=== PATIENT | male | born 1970 | race Caucasian/White ===

== ENCOUNTER 2020-03-03 15:02 | Outpatient (CLI) | payer OTHER, SELFPAY | END 2020-03-03 15:03 | disposition home or self-care (01) | LOC: RAD 03-04 09:57 | PROVIDERS: Visit Provider Emergency Medicine | DX: L97.519 Non-pressure chronic ulcer of other part of right foot with unspecified severity (principal); I10 Essential (primary) hypertension; I73.9 Peripheral vascular disease, unspecified; M86.8X7 Other osteomyelitis, ankle and foot | CPT/HCPCS: 73630; 80053; 80061; 83036; 84450; 85025; 87070 ==

== ENCOUNTER 2020-03-08 07:57 | Outpatient (RCR) | payer OTHER, SELFPAY | END 2020-03-10 23:59 | disposition home or self-care (01) | LOC: WOUND 07:57 | PROVIDERS: Visit Provider Thoracic Surgery (Cardiothoracic Vascular Surgery) | DX: E11.621 Type 2 diabetes mellitus with foot ulcer (principal); L97.512 Non-pressure chronic ulcer of other part of right foot with fat layer exposed | CPT/HCPCS: 87070; 87077; 87186; 99204; G0463 ==

== ENCOUNTER 2020-03-08 09:43 | Inpatient (IN) | payer OTHER, SELFPAY ==
[2020-03-08] VITALS (14 sets, daily range): BP systolic 97–154; BP diastolic 49–105; PULSE 87–106; RESP 16–21; TEMP 36.6–37.1; O2SAT 96–100; BMI 25.2
--- NOTE | 2020-03-08 09:57 | XR_ITS ---
WS: [id number] PORTABLE CHEST HISTORY: pre op COMPARISON: None available. Lungs are clear and well expanded. No pleural effusion or pneumothorax. Cardiac size: Normal. Mediastinum/Aorta: Normal mediastinum. No osseous abnormality seen. XR/XR chest 1V portable [id number] IMPRESSION: Unremarkable portable chest.
--- NOTE | 2020-03-08 10:37 | W.ED.EXTPRO ---
HPI - Extremity Problem General: Chief complaint: Extremity Problem,Nontraumatic Stated complaint: INFECTION RIGHT FOOT Time Seen by Provider: 03/08/20 09:50 Review of Systems General: Reports: 10 or more systems reviewed and unremarkable except in HPI and below PFSH ED PFSH: Medical History Foot ulcer, right HTN (hypertension) Osteomyelitis of ankle or foot, acute PVD (peripheral vascular disease) Social History Smoking and tobacco status: never smoked Alcohol intake: never Physical Exam Narrative: EXAM NARRATIVE: Patient has a wound to the dorsal aspect of his right foot. He has been seen by cardiovascular surgery and it is determined that he has osteomyelitis. Patient was sent to the emergency room to be admitted for definitive treatment. Skin: WOUNDS: Yes wounds noted drainage, malodorous and open Course Vital Signs: Vital signs: Vital Signs Temperature 98.5 F 03/08/20 10:17 Pulse Rate 106 H 03/08/20 10:35 Respiratory Rate 17 03/08/20 10:35 Blood Pressure 154/105 03/08/20 10:17 Pulse Oximetry 98 03/08/20 10:35 Discharge Plan Discharge Patient Disposition: Admitted As Inpatient Clinical Impression: PVD (peripheral vascular disease) Osteomyelitis of ankle or foot, acute Qualifiers: Laterality: right Qualified Code(s): M86.171 - Other acute osteomyelitis, right ankle and foot Foot ulcer, right Qualifiers: Non-pressure ulcer stage: unspecified non-pressure ulcer stage Qualified Code(s): L97.519 - Non-pressure chronic ulcer of other part of right foot with unspecified severity Condition: Fair Coding Level of Care Code 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
[2020-03-08 11:02] LABS: Basophils # 0.1 10^3/uL (0.0-0.1); Basophils % 0.3 %; Eosinophils # 0.1 10^3/uL (0.0-0.8); Eosinophils % 0.3 %; Hematocrit 40.5 % (42.0-52.0); Hemoglobin 13.2 g/dL (11.7-16.6); Lymphocytes # 0.9 10^3/uL (0.8-4.8); Lymphocytes % 4.4 %; Mean Corpuscular HGB Conc 32.6 g/dL (30.0-36.0); Mean Corpuscular Volume 85.8 fL (80-94); Mean Platelet Volume 10.1 fL (7.4-10.4); Monocytes # 0.9 10^3/uL (0.2-0.9); Monocytes % 4.7 %; Neutrophils # 16.5 10^3/uL (1.8-7.7); Neutrophils % 84.8 %; Nucleated Red Blood Cells % 0 %; Platelet Count 326 10^3/cmm (130-400); Red Blood Count 4.72 10^6/uL (4.1-5.3); Red Cell Distribution Width 12.3 % (12.1-15.1); White Blood Count 19.4 10^3/uL (4.0-10.0)
--- NOTE | 2020-03-08 11:14 | ANES.PREANE2 ---
Pre-Anesthetic Assessment Pre-Anesthetic Assessment: Height/Weight: Height 1.93 m Weight 93.894 kg Temp Pulse Resp BP Pulse Ox 98.5 F 106 H 17 154/105 98 03/08/20 10:17 03/08/20 10:35 03/08/20 10:35 03/08/20 10:17 03/08/20 10:35 Preop Diagnosis: Ulcer (Rfoot) Familial anesthetic complications: None Social: Social History: No alcohol and No tobacco Exam: Pre-Anes Outpt Exam: alert, oriented x 3, clear to auscultation bilaterally and regular rate & rhythm Airway: Cervical ROM: WNL MP: 4 Dentition: Chipped Additional comments: missing Pulmonary: Pulmonary: None reported CV/HEM: CV/HEM: HTN : : None reported Hepatic: Hepatic: None reported GI: GI: None reported Metabolic: Metabolic: DM and Hyperlipidemia Musc/skel: Musc/skel: None reported Neuropsych: Neuropsych: None reported Anesthetic Plan: ASA status: 2 Anesthesia: General Risk of > 500 ml blood loss (7ml/kg in children): No PFSH Anesthesia PFSH: Medical History Foot ulcer, right HTN (hypertension) Osteomyelitis of ankle or foot, acute PVD (peripheral vascular disease) Social History Smoking and tobacco status: never smoked Alcohol intake: never Data Anesthesia Micro: Microbiology 03/08/20 10:55 Blood Culture - Preliminary Blood SPECIMEN COLLECTED 03/08/20 10:50 Blood Culture - Preliminary Blood SPECIMEN COLLECTED Cardiac Studies: No Data to Display
[2020-03-08] MEDS: sodium chloride 0.9% 500 ML IV (11:15)
[2020-03-08 11:19] LABS: Lactate (Lactic Acid level) 1.7 mmol/L (0.5-2.2)
[2020-03-08 11:20] LABS: Alanine Aminotransferase 22 U/L (0-41); Albumin Level 2.7 g/dL (3.5-5.2); Alkaline Phosphatase 65 IU/L (40-130); Anion Gap 22.9 (5-19); Aspartate Amino Transferase 29 U/L (0-40); Blood Urea Nitrogen 14 mg/dL (6-20); Calcium 9.8 mg/dL (8.5-10.5); Carbon Dioxide 24 mmol/L (22-29); Chloride 86 mmol/L (98-107); Globulin 5.3 g/dL (1.3-4.6); Glomerular Filtration Rate 142.6 mL/min (90-130); Glucose 340 mg/dL (65-115); Osmolality Calculated 278 mOsm/kg (285-295); Potassium 3.9 mmol/L (3.5-5.1); Sodium 129 mmol/L (136-145); Total Bilirubin 0.7 mg/dL (0.15-1.2)
--- NOTE | 2020-03-08 11:33 | PM.HP ---
Providers/Chief Complaint Admitting Physician: Maura Hsieh DO Chief Complaint: DM FOOT ULCER History of Present Illness Benito Ibanez is a 49 year old male with a past medical history of hypertension and diabetes that presented to wound care today due to right lower extremity ulcer. He reported that he has been having issues with the right lower extremity for the past 1-2 months. He stated that initially it started with a small ulcer on the fifth digit of his right foot, he stated that this seemed to get better so he did not seek any further medical care. Patient reported that then he developed a blister over the top of his right foot and increasing redness. He reported that he went to urgent care and received antibiotics. He was sent to wound care and had appointment today. He reported that he was recently started on medications for high blood pressure and diabetes. Patient denies any fevers or chills, no sick contacts. He reports that he has had increased thirst and increased frequency of urination, no dysuria. He does report worsening redness over the right foot as well as increased drainage. Patient was seen and evaluated in the emergency department after sent from wound care noted to have concern for osteomyelitis. Review of Systems Const: Denies: fever or chills Eyes: Denies: change in vision ENMT: Denies: nasal congestion Card: Denies: chest pain, palpitations or edema Resp: Denies: shortness of breath, productive cough or coughing up blood GI: Denies: abdominal pain, nausea, vomiting, diarrhea, constipation, blood in stool or black tarry stool : Denies: painful urination or blood in urine Musc: Denies: extremity pain or muscle cramps Skin/Breast: Reports: other (Worsening erythema in the right foot as well as blister and nonhealing ulcers in the right foot); Denies: rash Neuro: Denies: headache or dizziness Psych: Denies: anxiety or depression Endo: Reports: excessive urination; Denies: hot flashes Tripp/Lymph: Denies: easy bruising or easy bleeding Medications/Allergies Home Medications Medication Instructions Recorded Confirmed Last Taken Type mupirocin 2 % topical ointment 1 applic TOPICAL BID #15 gm 03/03/20 03/08/20 03/08/20 Rx nystatin 100,000 unit/gram topical 1 applic TOPICAL BID #15 gm 03/03/20 03/08/20 03/08/20 Rx cream atorvastatin 20 mg tablet 20 mg PO DAILY #30 tab 03/05/20 03/08/20 Unknown Rx doxycycline hyclate 100 mg tablet 100 mg PO BID 10 Days #20 tab 03/05/20 03/08/20 03/08/20 Rx lisinopril 5 mg tablet 5 mg PO DAILY #30 tab 03/05/20 03/08/20 Unknown Rx metformin 500 mg tablet 500 mg PO BID 30 Days #60 tab 03/05/20 03/08/20 Unknown Rx Allergies Allergy/AdvReac Type Severity Reaction Status Date / Time No Known Allergies Allergy Verified 03/08/20 10:19 PFSH Acute PFSH: Medical History (Updated 03/08/20 @ 11:38 by Maura Hsieh DO) Diabetes mellitus Foot ulcer, right HTN (hypertension) Osteomyelitis of ankle or foot, acute PVD (peripheral vascular disease) Social History Smoking and tobacco status: never smoked Alcohol intake: never Supplemental PFSH Information: Patient denies any family history of heart disease, diabetes or stroke Denies any prior surgeries Vitals/I&O/Wt Last Vital Signs Temp 98.5 F 03/08/20 10:17 Pulse 106 H 03/08/20 10:35 Resp 17 03/08/20 10:35 BP 154/105 03/08/20 10:17 Pulse Ox 98 03/08/20 10:35 Weight last 48 hrs Weight 93.894 kg Physical Exam Const: COMMON NORMALS: oriented x3 and alert GENERAL APPEARANCE: cooperative ORIENTATION/CONSCIOUSNESS: Yes awake, Yes oriented to person, Yes oriented to place and Yes oriented to time HENMT: COMMON NORMALS: normocephalic and head/scalp atraumatic HEAD & SCALP: normocephalic and atraumatic Eye: COMMON NORMALS: PERRL PUPIL: Yes PERRL Neck/C-Spine: COMMON NORMALS: supple GENERAL: Yes normal visual inspection Resp: COMMON NORMALS: normal respiratory effort and clear to auscultation bilaterally EFFORT & INSPECTION: Yes able to speak in complete sentences AUSCULTATION: clear to auscultation bilaterally, no rhonchi and no wheezes Cardio: COMMON NORMALS: regular rhythm and no murmurs RATE: tachycardic RHYTHM: regular rhythm GI: COMMON NORMALS: soft to palpation and non-tender INSPECTION: No abdominal distension AUSCULTATION: Yes normoactive bowel sounds PALPATION: Yes soft : COMMON NORMALS: Yes no CVA tenderness BLADDER/KIDNEY EXAM: Yes no CVA tenderness Back/Pelvis: COMMON NORMALS: no CVA tenderness Extremity: NARRATIVE EXTREMITY EXAM: Edema and erythema to the right foot with blister over the ventral portion of the foot with hematoma and lateral ulcerations over the fifth digit with drainage of purulent material Neuro: COMMON NORMALS: oriented x3, CN's II-XII intact bilaterally, moves all extremities and no focal motor deficits SENSORIUM/ORIENTATION: Yes alert, Yes oriented to person, Yes oriented to place and Yes oriented to time SPEECH: speech normal Psych: COMMON NORMALS: mental status grossly normal and cooperative Data : 03/08/20 10:50 03/08/20 10:50 Micro: Microbiology 03/08/20 10:55 Blood Culture - Preliminary Blood SPECIMEN COLLECTED 03/08/20 10:50 Blood Culture - Preliminary Blood SPECIMEN COLLECTED A&P Assessment and plan (1) Osteomyelitis of ankle or foot, acute: X-ray from 03/03/2020 reviewed showing soft tissue ulceration with osteomyelitis involving the fifth metatarsal and metatarsal head Patient was seen in wound care today and admitted for further evaluation and treatment Case was discussed with Dr. Mcduffie, general surgeon. Patient to go to the OR today We will continue patient on broad-spectrum antibiotics with vancomycin and Zosyn Status: Acute Qualifiers: Laterality: right Qualified Code(s): M86.171 - Other acute osteomyelitis, right ankle and foot (2) Diabetes mellitus: Hemoglobin A1c last week of 10.1 Placed on sliding scale insulin May require long-acting insulin Status: Acute (3) HTN (hypertension): On lisinopril 5 mg daily, recently started. Will restart and monitor blood pressure closely. PRN hydralazine as needed for elevated blood pressure Status: Acute Additional A&P Information Sepsis secondary to osteomyelitis: tachycardia, leukocytosis. IV antibiotics and IVF ordered. Blood culture ordered and pending Pseudohyponatremia due to hyperglycemia DVT prophylaxis: SCD to the left lower extremity, no pharmacologic prophylaxis due to anticipated surgery today Diet: N.p.o. 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
[2020-03-08 11:40] LABS: Slide Review Slide Review Perform
[2020-03-08] MEDS: lisinopril 5 mg Tablet PO (12:44)
[2020-03-08] MEDS: sodium chloride 0.9% 1,000 ML 75 ML IV ×2 (12:45→23:54)
[2020-03-08 13:31] LABS: Glucose Point of Care 312 mg/dL (70-110)
--- NOTE | 2020-03-08 13:42 | PM.CONSULT ---
Providers/Reason For Consult Consulting Physican/Specialty*: Dr. Klein Reason for Consult*: Cellulitis right foot Attending Physician: Maura Hsieh DO History of Present Illness History of Present Illness Benito Ibanez is a 49 year old male who has since healed. He states that he developed a new ulcer right foot 2 weeks ago and which over the course of the week started pain redness and swelling. He was seen at urgent care clinic last week with x-ray showing osteomyelitis of right fifth metatarsal head. Patient is seen in wound care today admitted to the hospital for IV antibiotics. No prior surgical debridements. Patient is not a smoker and has not had any history of peripheral vascular disease. He is a diabetic Review of Systems General: Reports: 10 or more systems reviewed and unremarkable except in HPI and below Meds/Allergies Home Medications and Allergies Home Medications Medication Instructions Recorded Confirmed Last Taken Type mupirocin 2 % topical ointment 1 applic TOPICAL BID #15 gm 03/03/20 03/08/20 03/08/20 Rx nystatin 100,000 unit/gram topical 1 applic TOPICAL BID #15 gm 03/03/20 03/08/20 03/08/20 Rx cream atorvastatin 20 mg tablet 20 mg PO DAILY #30 tab 03/05/20 03/08/20 Unknown Rx doxycycline hyclate 100 mg tablet 100 mg PO BID 10 Days #20 tab 03/05/20 03/08/20 03/08/20 Rx lisinopril 5 mg tablet 5 mg PO DAILY #30 tab 03/05/20 03/08/20 Unknown Rx metformin 500 mg tablet 500 mg PO BID 30 Days #60 tab 03/05/20 03/08/20 Unknown Rx Allergies Allergy/AdvReac Type Severity Reaction Status Date / Time No Known Allergies Allergy Verified 03/08/20 10:19 Current Medications Current Medications Generic Name Dose Route Start Last Admin Trade Name Freq PRN Reason Stop Dose Admin Sodium Chloride 1,000 mls @ 75 mls/hr 03/08/20 12:14 03/08/20 12:45 Sodium Chloride 0.9% IV 75 mls/hr .[id number] MALKA Administration Lisinopril 5 mg 03/08/20 12:14 03/08/20 12:44 Prinivil PO 5 mg DAILY MALKA Administration PFSH Acute PFSH: Medical History Diabetes mellitus Foot ulcer, right HTN (hypertension) Osteomyelitis of ankle or foot, acute PVD (peripheral vascular disease) Surgical History No pertinent past surgical history Social History Smoking and tobacco status: never smoked Alcohol intake: never Vitals/I&O/Wt Last Vital Signs Temp 978 F H 03/08/20 12:14 Pulse 105 H 03/08/20 13:07 Resp 21 H 03/08/20 12:14 BP 144/84 03/08/20 12:14 Pulse Ox 97 03/08/20 13:07 Weight last 48 hrs Weight 207 lb Physical Exam Narrative: EXAM NARRATIVE: HEENT: Normocephalic Eye: Sclera /conjunctiva normal Respiratory and chest: Bilateral clear breath sounds on auscultation Cardiovascular: Normal S1 and S2 heart sounds Abdomen: Soft to palpation Neurological: Oriented to place person and time Skin: Intact, cellulitis extending to mid leg, edematous with 2 ulcers on the lateral aspect of the right foot Data Micro: Micro: Microbiology 03/08/20 10:55 Blood Culture - Pr eliminary Blood SPECIMEN [facility] 03/08/20 10:50 Blood Culture - Pr eliminary Blood SPECIMEN [facility] Imaging^: Other Xray: Radiologist's impression: X-ray foot showed osteomyelitis of the fifth metatarsal head A&P Assessment and plan (1) Osteomyelitis of ankle or foot, acute: 49-year-old gentleman who is a diabetic who has developed necrotic ulcer x2 on the right foot with associated cellulitis and osteomyelitis of the fifth metatarsal head. Patient is admitted to the hospital for IV antibiotics from wound care clinic. We will plan for debridement of the wound on right foot, discussed with the patient that if he does not have any significant soft tissue coverage over the phalanx of the metatarsal head after debridement then the best course of action would be to perform a metatarsal amputation. Procedure, risks, benefits and alternatives have been discussed with the patient who wishes to proceed with surgery. 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
[2020-03-08 17:51] LABS: Glucose Point of Care 244 mg/dL (70-110)
[2020-03-08] MEDS: insulin regular-human 100 units/1 mL 5 UNIT IVP (18:06)
--- NOTE | 2020-03-08 19:17 | PM.OP ---
Operative Report Date of procedure: March 08, 2020 Pre-op Diagnosis: Osteomyelitis right fifth metatarsal Pre-op Diagnosis: Cellulitis right foot Necrotic wound right foot x3 Post-op Diagnosis: Necrotizing cellulitis right foot Osteomyelitis right fifth metatarsal Procedure Done: Wound #1: Excisional debridement of necrotic skin, subcutaneous tissue, tendon, muscle on dorsal aspect of right foot using 10 blade Wound #2: Excisional debridement of necrotic skin, subcutaneous tissue using 15 blade on lateral aspect of right foot Right fifth metatarsal bone biopsy using a rongeur Specimens removed/disposition: Wound culture, bone cultures and pathology Surgeon: Dario Mcduffie Anesthesia: General Estimated blood loss (mL): 20 Condition: stable Disposition: PACU Procedure: The patient was taken to the operating room and intubated under general anesthesia after IV antibiotic had been administered. The right foot was prepped and draped in a sterile manner. Using a 15 blade excisional debridement of necrotic skin, subcutaneous tissue, muscle and tendons were performed on the dorsal aspect of the right foot resulting in a wound measuring 15 x 11 x 2 cm deep. There are 2 wounds on the lateral aspect of the right foot was debrided using 15 blade. The metatarsal head could be palpated to the more distal wound which measured 2 x 2 cm. The more proximal lateral wound was incorporated into the larger wound after the skin and subcutaneous tissue was excised. Wound cultures were sent and soft tissue sent to pathology. Using rondure bone biopsies were obtained from the metatarsal head. There was no significant bleeding noted, the wound irrigated with saline, packed with Kerlix gauze covered with ABD, Kerlix and Ernesto wrap. The patient was transferred to recovery room in stable condition.
--- NOTE | 2020-03-08 19:28 | SUR.PHASEI ---
PT DOES NOT AWAKE TO TOUCH OR VOICE, GOOD RESP NOTED FEET UP PER BED DRESSING D.I TO RT FOOT DISTAL TOES PINK WITH CAP REFILL LESS THAN 3 SECONDS.
[2020-03-08 19:34] LABS: Glucose Point of Care 171 mg/dL (70-110)
--- NOTE | 2020-03-08 19:34 | SUR.PHASEI ---
PT NOW AWAKE ALERT ON RA TAKING ICE CHIPS PT DENIE PAIN VSS.
--- NOTE | 2020-03-08 19:35 | SUR.PHASEI ---
DR ROMAN AT BEDSIDE, TALKING TO PT ABOUT SURGERY, AND CALLED PT EARLIER AND UP DATED HER.
--- NOTE | 2020-03-08 20:10 | SUR.PHASEI ---
1950 PT TO FLOOR ALERT MOVES SELF TO BED TALKATIVE WITH STAFF.
[2020-03-08 21:09] LABS: Glucose Point of Care 183 mg/dL (70-110)
[2020-03-08] MEDS: piperacillin-tazobactam 3.375 GM in sodium chloride 0.9% (plus) 50 ML IV (23:59)
[2020-03-09] VITALS (7 sets, daily range): BP systolic 110–133; BP diastolic 70–82; PULSE 97–100; RESP 18; TEMP 36.7–37.5; O2SAT 95–98
[2020-03-09 01:59] LABS: Basophils % 0.2 %; Eosinophils # 0.1 10^3/uL (0.0-0.8); Hematocrit 31.9 % (42.0-52.0); Hemoglobin 10.5 g/dL (11.7-16.6); Lymphocytes # 1.2 10^3/uL (0.8-4.8); Mean Corpuscular HGB Conc 32.9 g/dL (30.0-36.0); Mean Corpuscular Hemoglobin 28.3 pg (28.0-34.0); Mean Platelet Volume 9.9 fL (7.4-10.4); Monocytes # 0.8 10^3/uL (0.2-0.9); Monocytes % 5.9 %; Neutrophils # 11.2 10^3/uL (1.8-7.7); Neutrophils % 81.3 %; Nucleated Red Blood Cells % 0 %; Platelet Count 300 10^3/cmm (130-400); Red Blood Count 3.71 10^6/uL (4.1-5.3); Red Cell Distribution Width 12.6 % (12.1-15.1); White Blood Count 13.7 10^3/uL (4.0-10.0)
[2020-03-09 02:06] LABS: Anion Gap 16.6 (5-19); Blood Urea Nitrogen 14 mg/dL (6-20); Calcium 8.5 mg/dL (8.5-10.5); Carbon Dioxide 25 mmol/L (22-29); Chloride 93 mmol/L (98-107); Glucose 191 mg/dL (65-115); Osmolality Calculated 273 mOsm/kg (285-295); Potassium 3.6 mmol/L (3.5-5.1); Sodium 131 mmol/L (136-145)
--- NOTE | 2020-03-09 06:23 | P.PN_ITS ---
Vitals/I&O/Wt Last Vital Signs Temp 98.6 F 03/09/20 02:50 Pulse 97 03/09/20 02:50 Resp 18 03/09/20 02:50 BP 110/70 03/09/20 02:50 Pulse Ox 96 03/09/20 02:50 03/08/20 03/08/20 03/09/20 14:59 22:59 06:59 Intake Total 250 / 1626.25 1376.25 / 1626.25 Output Total 50 / 965 915 / 965 Balance 200 / 661.25 461.25 / 661.25 Weight last 48 hrs Weight 209 lb 8 oz Weight 207 lb Data : 03/09/20 01:46 03/09/20 01:46 Micro: Microbiology 03/08/20 18:43 Gram Stain - Final Other Source 03/08/20 18:43 Gram Stain - Final Bone 03/08/20 10:55 Blood Culture - Preliminary Blood SPECIMEN COLLECTED 03/08/20 10:50 Blood Culture - Preliminary Blood SPECIMEN COLLECTED 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
--- NOTE | 2020-03-09 06:27 | P.DS_ITS ---
Discharge Providers Date of Admission: 03/08/20 11:33 Date of Discharge: March 09, 2020 Attending Provider at Admission: Maura Hsieh DO Attending Provider at Discharge: Maura Hsieh DO Diagnoses at Discharge Discharge Diagnosis (1) Osteomyelitis of ankle or foot, acute: Status: Acute Qualifiers: Laterality: right Qualified Code(s): M86.171 - Other acute osteomyelitis, right ankle and foot Reason for Visit Reason for Visit: Reason For Visit: DM FOOT ULCER Discharge Data Data Completed and Pending: Completed Studies During Hospitalization Category Date Time Status XR chest 1V mike ble [id number] Urgent Exams 03/08/20 09:57 Completed Pending at discharge Category Date Time Status Anaerobic Culture Routine Lab 03/08/20 18:43 Received Basic Metabolic P noah AM LABS Lab 03/10/20 04:00 Ordered Basic Metabolic P noah AM LABS Lab 03/11/20 04:00 Ordered Blood Culture Sta t Lab 03/08/20 10:50 Results Blood Culture Sta t Lab 03/08/20 10:55 Results Complete Blood Co unt w/Auto AM LABS Lab 03/10/20 04:00 Ordered Complete Blood Co unt w/Auto AM LABS Lab 03/11/20 04:00 Ordered Tissue Culture an d Gram Stain Routi ne Lab 03/08/20 18:43 Results Vancomycin Trough Timed Lab 03/09/20 13:00 Ordered Wound Culture and Gram Stain Routin e Lab 03/08/20 18:43 Results Pathology: Surgic al [PTH] Routine Pth 03/08/20 19:26 [place] [id number] Rout ine Ultrasound 03/09/20 07:00 Ordered Labs from last 24 hours 03/09/20 03/09/20 03/08/20 01:46 01:46 20:57 WBC 13.7 H RBC 3.71 L Hgb 10.5 L Hct 31.9 L MCV 86.0 MCH 28.3 MCHC 32.9 RDW 12.6 Plt Count 300 MPV 9.9 Neut % (Auto) 81.3 Lymph % (Auto) 9.0 Miner % (Auto) 5.9 Eos % (Auto) 1.0 Baso % (Auto) 0.2 Neut # (Auto) 11.2 H Lymph # (Auto) 1.2 Miner # (Auto) 0.8 Eos # (Auto) 0.1 Baso # (Auto) 0.0 Nucleated RBC % (a uto) 0 Nucleated RBCs # 0.0 Sodium 131 L Potassium 3.6 Chloride 93 L Carbon Dioxide 25 Anion Gap 16.6 BUN 14 Creatinine 0.5 L GFR Calculation 176.0 H Glucose 191 H POC Glucose 183 Calculated Osmolal ity 273 L Lactate Calcium 8.5 Total Bilirubin AST ALT Alkaline Phosphata se Total Protein Albumin Globulin 03/08/20 03/08/20 03/08/20 19:21 17:47 13:27 WBC RBC Hgb Hct MCV MCH MCHC RDW Plt Count MPV Neut % (Auto) Lymph % (Auto) Miner % (Auto) Eos % (Auto) Baso % (Auto) Neut # (Auto) Lymph # (Auto) Miner # (Auto) Eos # (Auto) Baso # (Auto) Nucleated RBC % (a uto) Nucleated RBCs # Sodium Potassium Chloride Carbon Dioxide Anion Gap BUN Creatinine GFR Calculation Glucose POC Glucose 171 244 312 Calculated Osmolal ity Lactate Calcium Total Bilirubin AST ALT Alkaline Phosphata se Total Protein Albumin Globulin 03/08/20 03/08/20 03/08/20 10:50 10:50 10:50 WBC 19.4 H RBC 4.72 Hgb 13.2 Hct 40.5 L MCV 85.8 MCH 28.0 MCHC 32.6 RDW 12.3 Plt Count 326 MPV 10.1 Neut % (Auto) 84.8 Lymph % (Auto) 4.4 Miner % (Auto) 4.7 Eos % (Auto) 0.3 Baso % (Auto) 0.3 Neut # (Auto) 16.5 H Lymph # (Auto) 0.9 Miner # (Auto) 0.9 Eos # (Auto) 0.1 Baso # (Auto) 0.1 Nucleated RBC % (a uto) 0 Nucleated RBCs # 0.0 Sodium 129 L Potassium 3.9 Chloride 86 L Carbon Dioxide 24 Anion Gap 22.9 H BUN 14 Creatinine 0.6 L GFR Calculation 142.6 H Glucose 340 H POC Glucose Calculated Osmolal ity 278 L Lactate 1.7 Calcium 9.8 Total Bilirubin 0.7 AST 29 ALT 22 Alkaline Phosphata se 65 Total Protein 8.0 Albumin 2.7 L Globulin 5.3 H Vitals: Last Vital Signs Temp 98.6 F 03/09/20 02:50 Pulse 97 03/09/20 02:50 Resp 18 03/09/20 02:50 BP 110/70 03/09/20 02:50 Pulse Ox 96 03/09/20 02:50 Discharge Plan Discharge Patient Disposition: Home, Self-Care Condition: Fair Prescriptions: No Action nystatin 100,000 unit/gram cream 1 applic TOPICAL BID Qty: 15 RF: 1 mupirocin 2 % ointment 1 applic TOPICAL BID Qty: 15 RF: 1 doxycycline hyclate 100 mg tablet 100 mg PO BID 10 Days Qty: 20 RF: 0 metformin 500 mg tablet 500 mg PO BID 30 Days Qty: 60 RF: 0 lisinopril 5 mg tablet 5 mg PO DAILY Qty: 30 RF: 0 atorvastatin [Lipitor] 20 mg tablet 20 mg PO DAILY Qty: 30 RF: 0 Referrals: Tamara Dior MD [Physician] - 4-7 days (Appointment scheduled 03/16/2020 time 10:30am to officially establish care at clinic. 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
[2020-03-09 06:56] LABS: Glucose Point of Care 180 mg/dL (70-110)
--- NOTE | 2020-03-09 07:00 | USCV_ITS ---
Benito Ibanez Age: 49 Gender: M : 1970 Exam Date: 03/09/2020 10:37 Ordering Phys: Dario Mcduffie MD Technologist: Maliha Griffiths Exam Location: [facility] [place] Indication: FOOT ULCER Risk Factors: Previous Vascular Surgery: RIGHT LEFT BP: 130.0 / 75.00 BP: 140.0/ 84.00 0 0 Waveform Velocity (cm/s) Velocity (cm/s) Waveform Triphasic 89.7 Iliac Prox Triphasic 81.6 Iliac Mid Triphasic 70.7 Iliac Distal Triphasic FUNERAL ATTENDANT 60.9 Biphasic 65.5 SFA Prox Biphasic 80.1 SFA Mid Biphasic 113.4 SFA Dist Biphasic 65.5 POP Monophasic 121.7 CLINICAL SERVICES CONSULTANT Monophasic 39.6 DPA 0.7 ROJELIO FINDINGS RT CLINICAL SERVICES CONSULTANT = 85, RT DPA = 95 Diminished resting ROJELIO 0.7 on the right side CONCLUSIONS Moderate peripheral arterial disease on the right side. Dr Mary Cha MD FACC (Electronically Signed) Final Date: 09 March 2020 17:16 S
--- NOTE | 2020-03-09 08:15 | P.PN_ITS ---
Subjective Subjective: Interval history: Patient awake in bed upon entering the room. He reported that he slept well overnight. No chest pain or shortness of breath. Discussion with patient about severity of infection in the right lower extremity, discussed with him tendon excision from the right lower extremity due to infection and the need for continued IV antibiotics at this time due to c ellulitis and osteomyelitis. Patient verbalized understanding. Discussed with patient about the options for care including IV therapy and wound care, if not septic appearing, with trying to salvage the limb if possible. Also discussed with patient option including right below the knee amputation due to severity of his osteomyelitis and lower extremity cellulitis. Patient is uncertain of which route he would like to proceed with at this time. He reported that he will think about it and discuss further with surgeon this afternoon. Vitals/I&O/Wt Last Vital Signs Temp 98.8 F 03/09/20 07:39 Pulse 99 03/09/20 07:39 Resp 18 03/09/20 07:39 BP 124/72 03/09/20 07:39 Pulse Ox 95 03/09/20 07:39 03/08/20 03/09/20 03/09/20 22:59 06:59 14:59 Intake Total 250 / 250 1376.25 / 1626.25 Output Total 50 / 50 915 / 965 Balance 200 / 200 461.25 / 661.25 Weight last 48 hrs Weight 95.028 kg Weight 93.894 kg Physical Exam Const: COMMON NORMALS: oriented x3 and alert GENERAL APPEARANCE: cooperat marino ORIENTATION/CONSCIOUSNESS: Yes awake, Yes oriented to person, Yes oriented to place and Yes oriented to time HENMT: COMMON NORMALS: normocephalic and head/scalp atraumatic HEAD & SCALP: normocephalic and atraumatic Eye: COMMON NORMALS: PERRL PUPIL: Yes PERRL Neck/C-Spine: COMMON NORMALS: supple GENERAL: Yes normal visual inspection Resp: COMMON NORMALS: normal respiratory effort and clear to auscultation bilaterally EFFORT & INSPECTION: Yes able to speak in complete sentences AUSCULTATION: clear to auscultation bilaterally, no rhonchi and no wheezes Cardio: COMMON NORMALS: regular rhythm and no murmurs RATE: tachycardic RHYTHM: regular rhythm GI: COMMON NORMALS: soft to palpation and non-tender INSPECTION: No abdominal distension AUSCULTATION: Yes normoactive bowel sounds PALPATION: Yes soft : COMMON NORMALS: Yes no CVA tenderness BLADDER/KIDNEY EXAM: Yes no CVA tenderness Back/Pelvis: COMMON NORMALS: no CVA tenderness Extremity: NARRATIVE EXTREMITY EXAM: Postoperative dressing in place over the right lower extremity, erythema at the region of skin marking Neuro: COMMON NORMALS: oriented x3, CN's II-XII intact bilaterally, moves all extremities and no focal motor deficits SENSORIUM/ORIENTATION: Yes alert, Yes oriented to person, Yes oriented to place and Yes oriented to time SPEECH: speech normal Psych: COMMON NORMALS: mental status grossly normal and cooperative Data : 03/09/20 01:46 03/09/20 01:46 Micro: Microbiology 03/08/20 18:43 Gram Stain - Final Other Source 03/08/20 18:43 Gram Stain - Final Bone 03/08/20 10:55 Blood Culture - Preliminary Blood SPECIMEN COLLECTED 03/08/20 10:50 Blood Culture - Preliminary Blood SPECIMEN COLLECTED A&P Assessment and plan (1) Osteomyelitis of ankle or foot, acute: Osteomyelitis of the right fifth metatarsal with cellulitis to the right foot Status post excisional debridement of necrotic skin, subcutaneous tissue, tendon, muscle on the dorsal aspect of the right foot performed on 03/08/2020 Continue with IV antibiotics, broad-spectrum at this time with vancomycin and Zosyn Discussed with the patient today plans for continued treatment, discussed options of treatment including right below the knee amputation or PICC line placement with long-term IV antibiotics and wound care. Patient to discuss further and think about this further, will discuss further with surgeon today ROJELIO ordered and pending Status: Acute Qualifiers: Laterality: right Qualified Code(s): M86.171 - Other acute osteomyeli tis, right ankle and foot (2) Diabetes mellitus: Recently diagnosed, hemoglobin A1c of 10.1 last week Started on Lantus 10 units daily, continue on sliding scale insulin as needed Status: Acute (3) HTN (hypertension): Continue on lisinopril 5 mg daily Status: Acute Additional A&P Information Sepsis secondary to osteomyelitis: Improved, continue antibiotics Pseudohyponatremia due to hyperglycemia DVT prophylaxis: Lovenox Diet: Carbohydrate consistent diet Attestations Medical Necessity Statement*: Patient requires further hospitalization due to right lower extremity osteomyelitis and right foot cellulitis Coding Level of Care Code Acute Pediatrician Managing Partner for [facility] Diagnoses Osteomyelitis of ankle or foot, acute M86.171 Laterality: right Diabetes mellitus E11.9 HTN (hypertension) I10
[2020-03-09] MEDS: piperacillin-tazobactam 3.375 GM in sodium chloride 0.9% (plus) 50 ML IV ×3 (08:40→23:30)
[2020-03-09] MEDS: enoxaparin 40 mg/0.4 mL Syringe SUBCUT (08:40)
[2020-03-09] MEDS: lisinopril 5 mg Tablet PO (08:42)
[2020-03-09] MEDS: docusate sodium 100 mg Capsule PO (08:42)
[2020-03-09] MEDS: atorvastatin 40 mg Tablet 20 MG PO (08:42)
[2020-03-09] MEDS: insulin glargine 100 units/1 mL 10 UNIT SUBCUT (09:00)
--- NOTE | 2020-03-09 10:03 | ANE.PACU2 ---
 Inpatient post-anesthesia follow up: Airway intact: Yes Vital signs: Temperature 98.8 F Pulse Rate 99 Respiratory Rate 18 Blood Pressure 124/72 Pulse Oximetry 95 Oxygen Delivery Me thod [ Room Air Current Rate & Del amura] Oxygen Delivery Me thod Room Air Oxygen Flow Rate 0 Fraction of Inspir ed Oxygen Hydration adequate: Yes Nausea and vomiting: No Mental status: Baseline
--- NOTE | 2020-03-09 10:10 | PC.CHAP ---
Pastoral Care Encounter/Spiritual Assessment Type of Contact [] Declined certified prosthetist visit [] Patient/Family/Request visit [] Outpatient visit [] Follow-up visit [] Physician referral [] Code/Alert [x] Routine visit [] Staff referral [] Actively dying [] Patient sleeping [] Family support [] [] Out of room [] Palliative care [] [] Receiving care in room [] Pre-surgical visit [] Trauma [] Long length of stay [] ICU visit [] Other: Relational/Emotional Strength [] Patient feels connected with others/family/visitors/staff [] Distress [] Loneliness/isolation [] Abandonment Spirituality of Patient [] Person of Vaishali [] Attends Quaker of their Vaishali [] Believes in Prayer [] Reads Bible or Rastafarian materials [] There are Spiritual issues to be addressed Dx Board Operator Interventions [x] Prayer [] Active listening [] Non-anxious presence [] Spiritual/emotional support [] Crisis/trauma care [] Spiritual counseling [] Bereavement support [] Provided bereavement packet [] Provided Bible/devotional materials [] Provided toy/stuffed animal, coloring book to patient or family member [] Provided Communion [] Anointing/[place] [] Salvation [x] Completed spiritual assessment [] Other: Impact on Illness or Injury [] Angry [] Fearful [] Anxious [] Often cries [] Exhaustion [] Unable to work [] Unable to attend buddhist [] Unable to walk/stand [] Unable to read [] Unable to drive [] Unable to eat/drink [] Unable to sleep [] Unable to be with family [] Patient intubated [] Other: Summary Patient wanted to rest. Didnt sleep well upon entry to [facility]. Time spent with patient 5 min
[2020-03-09 11:09] LABS: Glucose Point of Care 229 mg/dL (70-110)
[2020-03-09] MEDS: sodium chloride 0.9% 1,000 ML 75 ML IV (13:43)
--- NOTE | 2020-03-09 14:08 | USCV_ITS ---
Benito Ibanez Age: 49 Gender: M : 1970 Exam Date: 03/09/2020 16:10 Ordering Phys: Maura Hsieh DO Technologist: Maliha Griffiths Exam Location: [facility] [place] Indication: BACTEREMIA BP: 116 / 72 HR: 100 Rhythm: Sinus Technical Quality: Adequate MEASUREMENTS (Male / Female) Normal Values 2D ECHO LV Diastolic Diameter PLAX 4.8 cm 4.2 - 5.9 / 3.9 - 5.3 cm LV Systolic Diameter PLAX 4.5 cm LV Chamber Size 4.2 cm IVS Diastolic Thickness 1.3 cm 0.6 - 1.0 / 0.6 - 0.9 cm IVS Systolic Thickness 1.2 cm LVPW Diastolic Thickness 1.9 cm 0.6 - 1.0 / 0.6 - 0.9 cm LVPW Systolic Thickness 1.8 cm RV Chamber Size 3.5 cm LVOT Diameter 2.0 cm LV Ejection Fraction 2D Teich 13.5 % LV Ejection Fraction MOD 2C 40.7 % LV Ejection Fraction 2C AL 41.5 % LA Diameter 3.2 cm LA Width 2.5 cm LA Height 3.8 cm RA Width 2.6 cm RA Height 3.4 cm Aorta at Sinotubular Diameter 2.8 cm M-MODE LV Diastolic Diameter MM 7.3 cm 4.2 - 5.9 / 3.9 - 5.3 cm LV Systolic Diameter MM 6.5 cm LV Ejection Fraction MM Teich 22.6 % IVS Diastolic Thickness MM 1.2 cm 0.6 - 1.0 / 0.6 - 0.9 cm IVS Systolic Thickness MM 1.1 cm LVPW Diastolic Thickness MM 0.7 cm 0.6 - 1.0 / 0.6 - 0.9 cm LVPW Systolic Thickness MM 1.1 cm Aortic Annulus Diameter 4.0 cm LA Ao Ratio MM 0.8 MV E Point Septal Separation 1.2 cm DOPPLER AV Peak Velocity 131.0 cm/s LVOT Peak Velocity 96.0 cm/s AV Area Cont Eq vti 2.5 cm squared AV Area Cont Eq pk 2.4 cm squared MV Area PHT 4.3 cm squared Mitral E to A Ratio 1.1 MV E' Velocity 15.0 cm/s Mitral E to MV E' Ratio 6.2 Mitral E to LV E' Lateral Ratio 5.5 Mitral E to LV E' Septal Ratio 7.2 TR Peak Velocity 198.0 cm/s TR Peak Gradient 15.7 mmHg TV Peak E Velocity 84.0 cm/s Right Atrial Pressure 3.0 mmHg Pulmonary Artery Systolic Pressu 18.7 mmHg PV Peak Velocity 58.0 cm/s RV Acceleration Time 0.2 s RV Ejection Time 0.3 s RV AcT/ET 0.6 FINDINGS Left Ventricle Normal left ventricular cavity size. Moderately decreased left ventricular systolic function. Global left ventricular hypokinesis. Left ventricular ejection fraction is estimated at 45 %. Grade II/IV diastolic dysfunction, moderately elevated filling pressures. Right Ventricle The right ventricle is normal in size and function. Right Atrium The right atrium is normal in size. Left Atrium The left atrium is normal in size. Mitral Valve Structurally normal mitral valve without significant stenosis or prolapse. There is no mitral regurgitation. Aortic Valve Moderate aortic valve calcification. Tricuspid Valve Structurally normal tricuspid valve without significant stenosis or regurgitation. Pulmonary artery systolic pressure is normal. Pulmonic Valve Structurally normal pulmonic valve without significant stenosis. There is no pulmonic regurgitation. Pericardium Normal pericardium without effusion. Aorta Normal ascending aorta dimension. CONCLUSIONS 1-Normal left ventricular cavity size. Moderately decreased left ventricular systolic function. Global left ventricular hypokinesis. Left ventricular ejection fraction is estimated at 45 %. Grade II/IV diastolic dysfunction, moderately elevated filling pressures. 2-Moderate aortic valve calcification. 3-Structurally normal mitral valve without significant stenosis or prolapse. There is no mitral regurgitation. 4-There is no pericardial effusion. 5-Pulmonary artery systolic pressure is within normal limits. 6-Right atrial pressure is around 5 mm of mercury. 7-There are no prior echocardiogram studies to compare. Marla Morley MD (Electronically Signed) Final Date: 09 March 2020 18:05 S
[2020-03-09 14:11] LABS: Vancomycin Trough 13.6 ug/mL (10-15)
--- NOTE | 2020-03-09 15:40 | P.PN_ITS ---
Subjective Subjective: Interval history: Patient denies significant foot pain, no fevers or chills. Blood cultures positive Vitals/I&O/Wt Last Vital Signs Temp 98.5 F 03/09/20 11:16 Pulse 97 03/09/20 11:16 Resp 18 03/09/20 11:16 BP 116/72 03/09/20 11:16 Pulse Ox 96 03/09/20 11:16 03/09/20 03/09/20 03/09/20 06:59 14:59 22:59 Intake Total 1376.25 / 1626.25 2210 / 2210 Output Total 915 / 965 800 / 800 Balance 461.25 / 661.25 2210 / 1410 -800 / 1410 Weight last 48 hrs Weight 209 lb 8 oz Weight 207 lb Physical Exam Narrative: EXAM NARRATIVE: Right foot: Wound did not have any significant necrotic tissue, cellulitis in the ankle is significantly improved Data : 03/09/20 01:46 03/09/20 01:46 Micro: Microbiology 03/09/20 09:45 Blood Culture - Preliminary Blood SPECIMEN COLLECTED 03/09/20 09:48 Blood Culture - Preliminary Blood SPECIMEN COLLECTED 03/08/20 10:50 Blood Culture - Preliminary Blood Gram positive cocci 03/08/20 10:55 Blood Culture - Preliminary Blood Gram positive cocci 03/08/20 18:43 Gram Stain - Final Other Source 03/08/20 18:43 Gram Stain - Final Bone A&P Assessment and plan (1) Foot ulcer, right: 49-year-old male, diabetic with necrotizing cellulitis of the right foot status post debridement. 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 Patient is hemodynamically stable, cellulitis improved Continue IV antibiotics Wet-to-dry twice daily At this point patient would like to continue with conservative measures to try and salvage the foot Status: Acute Qualifiers: Non-pressure ulcer stage: unspecified non-pressure ulcer stage Qualified Code(s): L97.519 - Non-pressure chronic ulcer of other part of right foot with unspecified severity Attestations Medical Necessity Statement*: Diabetic foot ulcer Coding Level of Care Code Acute Manager Mission for [facility] Diagnoses Foot ulcer, right L97.519 Non-pressure ulcer stage: unspecified non-pressure ulcer stage
[2020-03-09 16:49] LABS: Glucose Point of Care 250 mg/dL (70-110)
[2020-03-09 20:50] LABS: Glucose Point of Care 298 mg/dL (70-110)
[2020-03-10] VITALS: BP 122/76; PULSE 97; RESP 17; TEMP 36.8; O2SAT 93
[2020-03-10] MEDS: sodium chloride 0.9% 1,000 ML 75 ML IV (02:29)
[2020-03-10 04:00] VITALS: BP 126/73; PULSE 96; RESP 18; TEMP 37.3; O2SAT 93
[2020-03-10 05:26] LABS: Basophils % 0.3 %; Eosinophils # 0.2 10^3/uL (0.0-0.8); Eosinophils % 1.6 %; Hematocrit 29.8 % (42.0-52.0); Hemoglobin 9.8 g/dL (11.7-16.6); Lymphocytes # 1.4 10^3/uL (0.8-4.8); Lymphocytes % 12.4 %; Mean Corpuscular HGB Conc 32.9 g/dL (30.0-36.0); Mean Corpuscular Hemoglobin 28.7 pg (28.0-34.0); Mean Corpuscular Volume 87.4 fL (80-94); Mean Platelet Volume 9.9 fL (7.4-10.4); Monocytes # 0.8 10^3/uL (0.2-0.9); Monocytes % 6.9 %; Neutrophils # 8.2 10^3/uL (1.8-7.7); Neutrophils % 74.4 %; Nucleated Red Blood Cells % 0 %; Platelet Count 281 10^3/cmm (130-400); Red Blood Count 3.41 10^6/uL (4.1-5.3); Red Cell Distribution Width 12.9 % (12.1-15.1)
[2020-03-10 05:47] LABS: Anion Gap 14.3 (5-19); Blood Urea Nitrogen 12 mg/dL (6-20); Calcium 8.5 mg/dL (8.5-10.5); Carbon Dioxide 25 mmol/L (22-29); Chloride 96 mmol/L (98-107); Glucose 246 mg/dL (65-115); Osmolality Calculated 278 mOsm/kg (285-295); Potassium 3.3 mmol/L (3.5-5.1); Sodium 132 mmol/L (136-145)
[2020-03-10 06:00] VITALS: BMI 26.7
[2020-03-10 06:26] LABS: Glucose Point of Care 228 mg/dL (70-110)
[2020-03-10] MEDS: insulin glargine 100 units/1 mL 10 UNIT SUBCUT ×3 (07:57→09:54)
[2020-03-10] MEDS: enoxaparin 40 mg/0.4 mL Syringe SUBCUT (07:58)
[2020-03-10] MEDS: lisinopril 5 mg Tablet PO (07:59)
[2020-03-10] MEDS: docusate sodium 100 mg Capsule PO (07:59)
[2020-03-10] MEDS: piperacillin-tazobactam 3.375 GM in sodium chloride 0.9% (plus) 50 ML IV ×3 (07:59→23:39)
[2020-03-10 08:00] VITALS: BP 143/85; PULSE 96; RESP 16; TEMP 37.2; O2SAT 94
--- NOTE | 2020-03-10 08:33 | ECG_ITS ---
Measurements Intervals [place] Rate: 97 P: 44 NM: 139 QRS: -15 QRSD: 102 T: 46 QT: 368 QTc: 468 SINUS RHYTHM SEPTAL MYOCARDIAL INFARCTION [40+ ms Q WAVE IN V1/V2], OF INDETERMINATE AGE No previous ECG available for comparison Electronically Signed On 03-11-2020 16:11:42 CDT by Damaris Hoffmann M.D. [id number]
--- NOTE | 2020-03-10 09:28 | P.PN_ITS ---
Subjective Subjective: Interval history: Patient awake in bed at time of exam today. He reported no chest pain or shortness of breath. Discussed with patient plan for continued IV antibiotics. Discussed with patient changes on blood culture with positive blood culture and the need for IV antibiotics, he verbalized understanding. Also discussed echocardiogram Vitals/I&O/Wt Last Vital Signs Temp 98.9 F 03/10/20 08:00 Pulse 96 03/10/20 08:00 Resp 16 03/10/20 08:00 BP 143/85 03/10/20 08:00 Pulse Ox 94 03/10/20 08:00 03/09/20 03/10/20 03/10/20 22:59 06:59 14:59 Intake Total 420 / 2680 1257.5 / 3937.5 240 / 240 Output Total 800 / 800 1150 / 1950 Balance -380 / 1880 107.5 / 1987.5 240 / 240 Weight last 48 hrs Weight 99.564 kg Weight 95.028 kg Weight 93.894 kg Physical Exam Const: COMMON NORMALS: oriented x3 and alert GENERAL APPEARANCE: cooperative ORIENTATION/CONSCIOUSNESS: Yes awake, Yes oriented to person, Yes oriented to place and Yes oriented to time HENMT: COMMON NORMALS: normocephalic and head/scalp atraumatic HEAD & SCALP: normocephalic and atraumatic Eye: COMMON NORMALS: PERRL PUPIL: Yes PERRL Neck/C-Spine: COMMON NORMALS: supple GENERAL: Yes normal visual inspection Resp: COMMON NORMALS: normal respiratory effort and clear to auscultation bilaterally EFFORT & INSPECTION: Yes able to speak in complete sentences AUSCULTATION: clear to auscultation bilaterally, no rhonchi and no wheezes Cardio: COMMON NORMALS: regular rate, regular rhythm and no murmurs RATE: regular rate RHYTHM: regular rhythm GI: COMMON NORMALS: soft to palpation and non-tender INSPECTION: No abdominal distension AUSCULTATION: Yes normoactive bowel sounds PALPATION: Yes soft Extremity: NARRATIVE EXTREMITY EXAM: Postoperative dressing in place over the right lower extremity, erythema receding from marked area Neuro: COMMON NORMALS: oriented x3, CN's II-XII intact bilaterally, moves all extremities and no focal motor deficits SENSORIUM/ORIENTATION: Yes alert, Yes oriented to person, Yes oriented to place and Yes oriented to time SPEECH: speech normal Psych: COMMON NORMALS: mental status grossly normal and cooperative Data : 03/10/20 05:00 03/10/20 05:00 Micro: Microbiology 03/08/20 10:50 Blood Culture - Preliminary Blood Gram positive cocci 03/08/20 10:55 Blood Culture - Preliminary Blood Gram positive cocci 03/09/20 09:45 Blood Culture - Preliminary Blood SPECIMEN COLLECTED 03/09/20 09:48 Blood Culture - Preliminary Blood SPECIMEN COLLECTED A&P Assessment and plan (1) Osteomyelitis of ankle or foot, acute: Osteomyelitis of the right fifth metatarsal with cellulitis to the right foot Status post excisional debridement of necrotic skin, subcutaneous tissue, tendon, muscle on the dorsal aspect of the right foot performed on 03/08/2020 Continue with IV antibiotics, broad-spectrum at this time with vancomycin and Zosyn Patient would like to continue with conservative management to try to salvage hi s foot at this time. We will follow-up with surgical recommendations Status: Acute Qualifiers: Laterality: right Qualified Code(s): M86.171 - Other acute osteomyelitis, right ankle and foot (2) Diabetes mellitus: Recently diagnosed, hemoglobin A1c of 10.1 last week Increase Lantus to 20 units daily Status: Acute (3) HTN (hypertension): Continue on lisinopril 5 mg daily Status: Acute Additional A&P Information Bacteremia: Continue on IV antibiotics, repeat blood cultures ordered on 03/09/2020. We will hold off on PICC line placement until blood cultures returned with no growth. Gram-positive cocci in blood, echocardiogram ordered, will discuss with cardiology about the possibility of DON Sepsis secondary to osteomyelitis: Improved, continue antibiotics Pseudohyponatremia due to hyperglycemia DVT prophylaxis: Lovenox Diet: Carbohydrate consistent diet Attestations Medical Necessity Statement*: Patient requires hospitalization due to osteomyelitis with bacteremia and sepsis. Coding Level of Care Code Acute Director Global Medical Affairs for [facility] Diagnoses Osteomyelitis of ankle or foot, acute M86.171 Laterality: right Diabetes mellitus E11.9 HTN (hypertension) I10
[2020-03-10] MEDS: atorvastatin 40 mg Tablet 20 MG PO (09:40)
[2020-03-10 11:26] LABS: Glucose Point of Care 257 mg/dL (70-110)
[2020-03-10 11:27] VITALS: BP 136/77; PULSE 92; RESP 16; TEMP 37.1; O2SAT 99
[2020-03-10] MEDS: lactobacillus 1 Tablet 1 TAB PO ×3 (13:37→22:24)
[2020-03-10 15:25] VITALS: BP 140/85; PULSE 94; RESP 18; TEMP 37.5; O2SAT 98
[2020-03-10 16:28] LABS: Glucose Point of Care 295 mg/dL (70-110)
[2020-03-10 17:17] LABS: Glucose Point of Care 253 mg/dL (70-110)
[2020-03-10 20:00] VITALS: BP 135/84; PULSE 96; RESP 20; TEMP 37.2; O2SAT 97
[2020-03-10 21:54] LABS: Glucose Point of Care 302 mg/dL (70-110)
[2020-03-11] VITALS (7 sets, daily range): BP systolic 132–157; BP diastolic 83–92; PULSE 75–101; RESP 18–20; TEMP 36.4–37.2; O2SAT 95–98; BMI 26.6
[2020-03-11 05:33] LABS: Basophils % 0.3 %; Eosinophils # 0.2 10^3/uL (0.0-0.8); Hematocrit 31.6 % (42.0-52.0); Hemoglobin 9.9 g/dL (11.7-16.6); Lymphocytes # 1.6 10^3/uL (0.8-4.8); Lymphocytes % 14.2 %; Mean Corpuscular HGB Conc 31.3 g/dL (30.0-36.0); Mean Corpuscular Hemoglobin 28.6 pg (28.0-34.0); Mean Corpuscular Volume 91.3 fL (80-94); Mean Platelet Volume 10.7 fL (7.4-10.4); Monocytes # 0.8 10^3/uL (0.2-0.9); Monocytes % 7.5 %; Neutrophils # 7.7 10^3/uL (1.8-7.7); Neutrophils % 70.3 %; Nucleated Red Blood Cells % 0 %; Platelet Count 279 10^3/cmm (130-400); Red Blood Count 3.46 10^6/uL (4.1-5.3); Red Cell Distribution Width 12.9 % (12.1-15.1)
[2020-03-11 05:56] LABS: Anion Gap 16.2 (5-19); Blood Urea Nitrogen 10 mg/dL (6-20); Calcium 8.2 mg/dL (8.5-10.5); Carbon Dioxide 24 mmol/L (22-29); Chloride 98 mmol/L (98-107); Glomerular Filtration Rate 142.6 mL/min (90-130); Glucose 184 mg/dL (65-115); Osmolality Calculated 281 mOsm/kg (285-295); Potassium 3.2 mmol/L (3.5-5.1); Sodium 135 mmol/L (136-145)
[2020-03-11 06:09] LABS: Slide Review Slide Review Perform
[2020-03-11 06:38] LABS: Glucose Point of Care 181 mg/dL (70-110)
[2020-03-11] MEDS: lactobacillus 1 Tablet 1 TAB PO ×4 (08:37→21:14)
[2020-03-11] MEDS: piperacillin-tazobactam 3.375 GM in sodium chloride 0.9% (plus) 50 ML IV (08:37)
[2020-03-11] MEDS: atorvastatin 40 mg Tablet 20 MG PO (08:38)
[2020-03-11] MEDS: lisinopril 5 mg Tablet PO (08:38)
[2020-03-11] MEDS: enoxaparin 40 mg/0.4 mL Syringe SUBCUT (08:38)
[2020-03-11] MEDS: insulin glargine 100 units/1 mL 20 UNIT SUBCUT (08:50)
[2020-03-11 12:09] LABS: Glucose Point of Care 222 mg/dL (70-110)
--- NOTE | 2020-03-11 13:35 | PM.PN ---
Subjective Subjective: Interval history: Patient awake in bed at time of exam today. He denied any chest pain or shortness of breath. Noted the pain was well controlled in the lower extremity. He reported no concerns other than wanting to go home. Discussed with patient again positive blood cultures and need for continued IV antibiotics and PICC line placement once blood cultures are negative. He verbalized understanding and agreed with plan. Vitals/I&O/Wt Last Vital Signs Temp 97.6 F 03/11/20 11:28 Pulse 101 H 03/11/20 11:28 Resp 18 03/11/20 11:28 BP 144/83 03/11/20 11:28 Pulse Ox 97 03/11/20 11:28 03/10/20 03/11/20 03/11/20 22:59 06:59 14:59 Intake Total 650 / 1550 540 / 2090 240 / 240 Output Total 300 / 800 Balance 350 / 750 540 / 1290 240 / 240 Weight last 48 hrs Weight 101.968 kg Weight 99.11 kg Weight 99.564 kg Physical Exam Const: COMMON NORMALS: oriented x3 and alert GENERAL APPEARANCE: cooperative ORIENTATION/CONSCIOUSNESS: Yes awake, Yes oriented to person, Yes oriented to place and Yes oriented to time HENMT: COMMON NORMALS: normocephalic and head/scalp atraumatic HEAD & SCALP: normocephalic and atraumatic Eye: COMMON NORMALS: PERRL PUPIL: Yes PERRL Neck/C-Spine: COMMON NORMALS: supple GENERAL: Yes normal visual inspection Resp: COMMON NORMALS: normal respiratory effort and clear to auscultation bilaterally EFFORT & INSPECTION: Yes able to speak in complete sentences AUSCULTATION: clear to auscultation bilaterally, no rhonchi and no wheezes Cardio: COMMON NORMALS: regular rate, regular rhythm and no murmurs RATE: regular rate RHYTHM: regular rhythm GI: COMMON NORMALS: soft to palpation and non-tender INSPECTION: No abdominal distension AUSCULTATION: Yes normoactive bowel sounds PALPATION: Yes soft : COMMON NORMALS: Yes no CVA tenderness BLADDER/KIDNEY EXAM: Yes no CVA tenderness Back/Pelvis: COMMON NORMALS: no CVA tenderness Extremity: NARRATIVE EXTREMITY EXAM: Postoperative dressing in place over the right lower extremity, erythema in R distal LE improved Neuro: COMMON NORMALS: oriented x3 and CN's II-XII intact bilaterally SENSORIUM/ORIENTATION: Yes alert, Yes oriented to person, Yes oriented to place and Yes oriented to time SPEECH: speech normal Psych: COMMON NORMALS: mental status grossly normal and cooperative Data : 03/11/20 04:55 03/11/20 04:55 Micro: Microbiology 03/08/20 18:43 Gram Stain - Final Other Source Wound Culture - Final Strep agalactiae - (group b) 03/08/20 18:43 Gram Stain - Final Bone Tissue Culture - Preliminary Strep agalactiae - (group b) 03/08/20 10:50 Blood Culture - Preliminary Blood Strep agalactiae - (group b) 03/08/20 10:55 Blood Culture - Preliminary Blood Strep agalactiae - (group b) 03/08/20 18:43 Anaerobic Culture - Preliminary Foot - Right 03/09/20 09:48 Blood Culture - Preliminary Blood NEGATIVE TO DATE 03/09/20 09:45 Blood Culture - Preliminary Blood NEGATIVE TO DATE A&P Assessment and plan (1) Osteomyelitis of ankle or foot, acute: Osteomyelitis of the right fifth metatarsal with cellulitis to the right foot Status post excisional debridement of necrotic skin, subcutaneous tissue, tendon, muscle on the dorsal aspect of the right foot performed on 03/08/2020 Patient would like to continue with conservative management Discontinue vancomycin and Zosyn and transition to Rocephin 2 g every 24 hours Status: Acute Qualifiers: Laterality: right Qualified Code(s): M86.171 - Other acute osteomyelitis, right ankle and foot (2) Diabetes mellitus: Increase Lantus to 30 units daily Status: Acute (3) HTN (hypertension): Continue on lisinopril 5 mg daily Status: Acute Additional A&P Information Bacteremia: Transition to Rocephin, 2 g every 24 hours. Will need outpatient long-term IV antibiotics. Awaiting for final blood cultures to return negative on repeat before placing PICC line. Once cultures return with no growth then will place PICC line and continue with Rocephin 2 g every 24 hours Sepsis secondary to osteomyelitis: Improved Hypokalemia: Given 40 mEq of potassium today DVT prophylaxis: Lovenox Diet: Carbohydrate consistent diet Attestations Medical Necessity Statement*: Patient requires continued hospitalization due to concern for bacteremia with osteomyelitis. Coding Level of Care Code Acute Front Office Director for [facility] Diagnoses Osteomyelitis of ankle or foot, acute M86.171 Laterality: right Diabetes mellitus E11.9 HTN (hypertension) I10
[2020-03-11 15:11] LABS: Vancomycin Trough 20.8 ug/mL (10-15)
[2020-03-11] MEDS: cefTRIAXone 2,000 MG in sodium chloride 0.9% (plus) 50 ML 100 MG IV (15:40)
--- NOTE | 2020-03-11 16:21 | P.PN_ITS ---
Subjective Subjective: Interval history: Patient feels great denies any nausea or vomiting fevers or chills. Vitals/I&O/Wt Last Vital Signs Temp 98.8 F 03/11/20 15:43 Pulse 99 03/11/20 15:43 Resp 18 03/11/20 15:43 BP 157/92 03/11/20 15:43 Pulse Ox 98 03/11/20 15:43 03/11/20 03/11/20 03/11/20 06:59 14:59 22:59 Intake Total 540 / 2090 480 / 480 Balance 540 / 1290 480 / 480 Weight last 48 hrs Weight 224 lb 12.8 oz Weight 218 lb 8 oz Weight 219 lb 8 oz Physical Exam Narrative: EXAM NARRATIVE: Right leg: Cellulitis significantly improved, minimal granulation tissue in the wound Data : 03/11/20 04:55 03/11/20 04:55 Micro: Microbiology 03/08/20 10:55 Blood Culture - Final Blood Strep agalactiae - (group b) 03/08/20 18:43 Gram Stain - Final Other Source Wound Culture - Final Strep agalactiae - (group b) 03/08/20 18:43 Gram Stain - Final Bone Tissue Culture - Preliminary Strep agalactiae - (group b) 03/08/20 10:50 Blood Culture - Preliminary Blood Strep agalactiae - (group b) 03/08/20 18:43 Anaerobic Culture - Preliminary Foot - Right A&P Assessment and plan (1) Foot ulcer, right: 49-year-old gentleman with diabetic ulcer status post debridement awaiting final blood culture results. Continue daily dressing change Continue IV antibiotics Status: Acute Qualifiers: Non-pressure ulcer stage: unspecified non-pressure ulcer stage Qualified Code(s): L97.519 - Non-pressure chronic ulcer of other part of right foot with unspecified severity Attestations Medical Necessity Statement*: 49-year-old gentleman with diabetic ulcer Coding Level of Care Code Acute Title Inspector for [facility] Diagnoses Foot ulcer, right L97.519 Non-pressure ulcer stage: unspecified non-pressure ulcer stage
[2020-03-11 16:47] LABS: Magnesium 2.2 mg/dL (1.7-2.3)
[2020-03-11 17:05] LABS: Glucose Point of Care 169 mg/dL (70-110)
[2020-03-11 20:34] LABS: Glucose Point of Care 200 mg/dL (70-110)
[2020-03-12] VITALS: BP 130/76; PULSE 72; RESP 18; TEMP 36.7; O2SAT 94
[2020-03-12 04:00] VITALS: BP 138/74; PULSE 92; RESP 17; TEMP 36.6; O2SAT 93
[2020-03-12 06:44] LABS: Glucose Point of Care 148 mg/dL (70-110)
[2020-03-12 06:57] VITALS: BP 152/83; PULSE 93; RESP 18; TEMP 36.6; O2SAT 98
[2020-03-12 07:02] LABS: Anion Gap 16.3 (5-19); Blood Urea Nitrogen 11 mg/dL (6-20); Calcium 8.7 mg/dL (8.5-10.5); Carbon Dioxide 26 mmol/L (22-29); Chloride 98 mmol/L (98-107); Glomerular Filtration Rate 102.3 mL/min (90-130); Glucose 160 mg/dL (65-115); Osmolality Calculated 283 mOsm/kg (285-295); Potassium 3.3 mmol/L (3.5-5.1); Sodium 137 mmol/L (136-145)
[2020-03-12] MEDS: enoxaparin 40 mg/0.4 mL Syringe SUBCUT (07:33)
[2020-03-12] MEDS: atorvastatin 40 mg Tablet 20 MG PO (07:34)
[2020-03-12] MEDS: insulin glargine 100 units/1 mL 30 UNIT SUBCUT (07:35)
[2020-03-12] MEDS: lactobacillus 1 Tablet 1 TAB PO ×4 (07:35→22:08)
[2020-03-12] MEDS: lisinopril 5 mg Tablet PO (07:35)
--- NOTE | 2020-03-12 10:09 | PM.PN ---
Subjective Subjective: Interval history: Patient denies any significant pain, no issues overnight Vitals/I&O/Wt Last Vital Signs Temp 97.9 F 03/12/20 06:57 Pulse 93 03/12/20 06:57 Resp 18 03/12/20 06:57 BP 152/83 03/12/20 06:57 Pulse Ox 98 03/12/20 06:57 03/11/20 03/12/20 03/12/20 22:59 06:59 14:59 Intake Total 480 / 960 Output Total 300 / 1670 1370 / 1670 400 / 400 Balance 180 / -710 -1370 / -710 -400 / -400 Weight last 48 hrs Weight 221 lb 9 oz Weight 224 lb 12.8 oz Weight 218 lb 8 oz Physical Exam Narrative: EXAM NARRATIVE: Right foot: Wound has some good granulation tissue on the edges, cellulitis significantly improved. Minimal purulent drainage noted Data : 03/11/20 04:55 03/12/20 06:18 Micro: Microbiology 03/08/20 18:43 Gram Stain - Final Bone Tissue Culture - Final Strep agalactiae - (group b) 03/08/20 18:43 Anaerobic Culture - Preliminary Foot - Right 03/08/20 10:55 Blood Culture - Final Blood Strep agalactiae - (group b) 03/08/20 18:43 Gram Stain - Final Other Source Wound Culture - Final Strep agalactiae - (group b) A&P Assessment and plan (1) Foot ulcer, right: Status post debridement doing well Plan for wound VAC placement today Continue IV antibiotics, awaiting final culture and sensitivities Status: Acute Qualifiers: Non-pressure ulcer stage: unspecified non-pressure ulcer stage Qualified Code(s): L97.519 - Non-pressure chronic ulcer of other part of right foot with unspecified severity Attestations Medical Necessity Statement*: Osteomyelitis, diabetic ulcer Coding Level of Care Code Acute 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
[2020-03-12 11:25] VITALS: BP 144/81; PULSE 96; RESP 18; TEMP 36.9; O2SAT 97
[2020-03-12 11:44] LABS: Glucose Point of Care 190 mg/dL (70-110)
--- NOTE | 2020-03-12 11:44 | P.PN_ITS ---
Subjective Subjective: Interval history: Benito reports he is doing okay. Pain is under control. Wound VAC is been placed today Medications: Reviewed: Yes Vitals/I&O/Wt Last Vital Signs Temp 98.4 F 03/12/20 11:25 Pulse 96 03/12/20 11:25 Resp 18 03/12/20 11:25 BP 144/81 03/12/20 11:25 Pulse Ox 97 03/12/20 11:25 03/11/20 03/12/20 03/12/20 22:59 06:59 14:59 Intake Total 480 / 960 Output Total 300 / 300 1370 / 1670 400 / 400 Balance 180 / 660 -1370 / -710 -400 / -400 Weight last 48 hrs Weight 100.499 kg Weight 101.968 kg Weight 99.11 kg Physical Exam Narrative: EXAM NARRATIVE: General exam no apparent distress Cardiovascular regular in rhythm without murmur Lungs clear Abdomen is soft with positive bowel sounds Extremities no cyanosis clubbing. Cellulitis greatly improved right lower extremity. Wound VAC in place. Data : 03/11/20 04:55 03/12/20 06:18 Micro: Microbiology 03/08/20 18:43 Gram Stain - Final Bone Tissue Culture - Final Strep agalactiae - (group b) 03/08/20 18:43 Anaerobic Culture - Preliminary Foot - Right 03/08/20 10:55 Blood Culture - Final Blood Strep agalactiae - (group b) 03/08/20 18:43 Gram Stain - Final Other Source Wound Culture - Final Strep agalactiae - (group b) A&P Assessment and plan (1) Osteomyelitis of ankle or foot, acute: Osteomyelitis of the right fifth metatarsal with cellulitis to the right foot Status post excisional debridement of necrotic skin, subcutaneous tissue, tendon, muscle on the dorsal aspect of the right foot performed on 03/08/2020 Wound VAC is been placed. Surgery recommends continued hospitalization for close monitoring of wound during this process. Secondary to osteomyelitis will need 6 weeks of IV antibiotics. Final anaerobic cultures pending but blood culture from prior, and wound culture demonstrated group B strep sensitive to Rocephin which she has been changed to. Status: Acute Qualifiers: Laterality: right Qualified Code(s): M86.171 - Other acute osteomyelitis, right ankle and foot (2) Diabetes mellitus: Continue Lantus, sliding scale Status: Acute (3) HTN (hypertension): Continue lisinopril Add low-dose beta-toya secondary to diminished EF seen on echocardiogram Status: Acute Additional A&P Information Reduced EF on echo, 45%. Conceivably could be due to bacteremia secondary to global hypokinesis. He does have risk factors for heart disease. He has had no chest discomfort. EKG does demonstrate some Q waves septally. I will place him on beta-toya with his BENI inhibitor. Continue statin. Add low-dose aspirin. Consider outpatient nuclear stress test. Check TSH Bacteremia with group B strep. Currently on Rocephin. Repeat culture negative to date. Arrange for PICC line placement. 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
[2020-03-12 12:19] LABS: Thyroid Stimulating Hormone 1.96 uIU/mL (0.27-4.20)
[2020-03-12] MEDS: cefTRIAXone 2,000 MG in sodium chloride 0.9% (plus) 50 ML 100 MG IV (12:55)
[2020-03-12 14:48] VITALS: BP 137/84; PULSE 94; RESP 18; TEMP 36.8; O2SAT 96
[2020-03-12 16:49] LABS: Glucose Point of Care 172 mg/dL (70-110)
[2020-03-12] MEDS: metoprolol tartrate 25 mg Tablet 12.5 MG PO (16:54)
[2020-03-12 20:00] VITALS: BP 144/83; PULSE 96; RESP 18; TEMP 36.7; O2SAT 93
[2020-03-12 21:38] LABS: Glucose Point of Care 166 mg/dL (70-110)
[2020-03-13] VITALS (7 sets, daily range): BP systolic 133–147; BP diastolic 77–89; PULSE 89–99; RESP 17–24; TEMP 36.6–36.9; O2SAT 90–99
[2020-03-13 05:50] LABS: Basophils % 0.2 %; Eosinophils # 0.3 10^3/uL (0.0-0.8); Eosinophils % 2.6 %; Hematocrit 31.7 % (42.0-52.0); Hemoglobin 10.2 g/dL (11.7-16.6); Lymphocytes # 1.5 10^3/uL (0.8-4.8); Lymphocytes % 11.4 %; Mean Corpuscular HGB Conc 32.2 g/dL (30.0-36.0); Mean Corpuscular Hemoglobin 28.6 pg (28.0-34.0); Mean Corpuscular Volume 88.8 fL (80-94); Mean Platelet Volume 9.6 fL (7.4-10.4); Monocytes # 0.8 10^3/uL (0.2-0.9); Monocytes % 6.3 %; Neutrophils # 9.8 10^3/uL (1.8-7.7); Neutrophils % 76.5 %; Nucleated Red Blood Cells % 0 %; Platelet Count 381 10^3/cmm (130-400); Red Blood Count 3.57 10^6/uL (4.1-5.3); White Blood Count 12.8 10^3/uL (4.0-10.0)
[2020-03-13 06:07] LABS: Anion Gap 15.5 (5-19); Blood Urea Nitrogen 11 mg/dL (6-20); Calcium 8.5 mg/dL (8.5-10.5); Carbon Dioxide 26 mmol/L (22-29); Chloride 101 mmol/L (98-107); Glomerular Filtration Rate 89.3 mL/min (90-130); Glucose 115 mg/dL (65-115); Osmolality Calculated 285 mOsm/kg (285-295); Potassium 3.5 mmol/L (3.5-5.1); Sodium 139 mmol/L (136-145)
[2020-03-13 06:31] LABS: Glucose Point of Care 114 mg/dL (70-110)
[2020-03-13 07:41] LABS: Glucose Point of Care 119 mg/dL (70-110)
[2020-03-13] MEDS: enoxaparin 40 mg/0.4 mL Syringe SUBCUT (08:31)
[2020-03-13] MEDS: metoprolol tartrate 25 mg Tablet 12.5 MG PO ×2 (08:32→17:00)
[2020-03-13] MEDS: atorvastatin 40 mg Tablet 20 MG PO (08:32)
[2020-03-13] MEDS: aspirin 81 mg EC Tablet PO (08:32)
[2020-03-13] MEDS: lisinopril 5 mg Tablet PO (08:32)
[2020-03-13] MEDS: lactobacillus 1 Tablet 1 TAB PO ×4 (08:32→21:08)
[2020-03-13] MEDS: insulin glargine 100 units/1 mL 30 UNIT SUBCUT (08:36)
--- NOTE | 2020-03-13 10:06 | PM.PN ---
Subjective Subjective: Interval history: Benito reports he is doing well. No specific complaints. Tolerating the wound vacuum Medications: Reviewed: Yes Vitals/I&O/Wt Last Vital Signs Temp 97.8 F 03/13/20 08:00 Pulse 99 03/13/20 08:00 Resp 18 03/13/20 08:00 BP 147/89 03/13/20 08:00 Pulse Ox 95 03/13/20 08:00 03/12/20 03/13/20 03/13/20 22:59 06:59 14:59 Intake Total 530 / 530 Output Total 650 / 1550 910 / 2460 300 / 300 Balance -650 / -1550 -910 / -2460 230 / 230 Weight last 48 hrs Weight 101.293 kg Weight 100.499 kg Physical Exam Narrative: EXAM NARRATIVE: General exam no apparent distress Cardiovascular regular in rhythm without murmur Lungs clear Abdomen is soft with positive bowel sounds Extremities no cyanosis clubbing. Wound VAC in place. Data : 03/13/20 05:32 03/13/20 05:32 Micro: Microbiology 03/08/20 18:43 Anaerobic Culture - Preliminary Foot - Right 03/08/20 18:43 Gram Stain - Final Bone Tissue Culture - Final Strep agalactiae - (group b) A&P Assessment and plan (1) Osteomyelitis of ankle or foot, acute: Osteomyelitis of the right fifth metatarsal with cellulitis to the right foot Status post excisional debridement of necrotic skin, subcutaneous tissue, tendon, muscle on the dorsal aspect of the right foot performed on 03/08/2020 Wound VAC is been placed. Surgery recommends continued hospitalization for close monitoring of wound during this process. Secondary to osteomyelitis will need 6 weeks of IV antibiotics. Final anaerobic cultures pending but blood culture from prior, and wound culture demonstrated group B strep sensitive to Rocephin which he has been changed to. PICC line tomorrow to facilitate outpatient treatment Status: Acute Qualifiers: Laterality: right Qualified Code(s): M86.171 - Other acute osteomyelitis, right ankle and foot (2) Diabetes mellitus: Continue Lantus, sliding scale Status: Acute (3) HTN (hypertension): Continue lisinopril Low-dose beta-toya secondary to diminished EF seen on echocardiogram Status: Acute Additional A&P Information Reduced EF on echo, 45%. Conceivably could be due to bacteremia secondary to global hypokinesis. He does have risk factors for heart disease. He has had no chest discomfort. EKG does demonstrate some Q waves septally. Continue beta-toya, BENI inhibitor, aspirin, and continue statin. Consider outpatient nuclear stress test. Check TSH Bacteremia with group B strep. Currently on Rocephin. Repeat culture negative to date. Arrange for PICC line placement. 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
[2020-03-13 10:54] LABS: Glucose Point of Care 264 mg/dL (70-110)
--- NOTE | 2020-03-13 12:07 | P.PN_ITS ---
Subjective Subjective: Interval history: Patient has been doing well no issues overnight, tolerating wound VAC Vitals/I&O/Wt Last Vital Signs Temp 98.4 F 03/13/20 10:55 Pulse 89 03/13/20 10:55 Resp 18 03/13/20 10:55 BP 137/84 03/13/20 10:55 Pulse Ox 95 03/13/20 10:55 03/12/20 03/13/20 03/13/20 22:59 06:59 14:59 Intake Total 530 / 530 Output Total 650 / 2460 910 / 2460 550 / 550 Balance -650 / -2460 -910 / -2460 -20 Weight last 48 hrs Weight 223 lb 5 oz Weight 221 lb 9 oz Physical Exam Narrative: EXAM NARRATIVE: Right foot: Cellulitis resolved, wound VAC in place Data : 03/13/20 05:32 03/13/20 05:32 Micro: Microbiology 03/08/20 18:43 Anaerobic Culture - Preliminary Foot - Right 03/08/20 18:43 Gram Stain - Final Bone Tissue Culture - Final Strep agalactiae - (group b) A&P Assessment and plan (1) Foot ulcer, right: Status post debridement doing well Wound cultures are back, patient will go home on Rocephin PICC line placement tomorrow Wound VAC change tomorrow and hopefully can go home tomorrow Status: Acute Qualifiers: Non-pressure ulcer stage: unspecified non-pressure ulcer stage Qualified Code(s): L97.519 - Non-pressure chronic ulcer of other part of right foot with unspecified severity Attestations Medical Necessity Statement*: Diabetic foot ulcer with osteomyelitis requiring IV antibiotics Coding Level of Care Code Acute Cardio Tech for [facility] Diagnoses Foot ulcer, right L97.519 Non-pressure ulcer stage: unspecified non-pressure ulcer stage
[2020-03-13] MEDS: cefTRIAXone 2,000 MG in sodium chloride 0.9% (plus) 50 ML 100 MG IV (13:06)
[2020-03-13 16:31] LABS: Glucose Point of Care 187 mg/dL (70-110)
[2020-03-13 21:03] LABS: Glucose Point of Care 180 mg/dL (70-110)
[2020-03-14 04:00] VITALS: BP 151/88; PULSE 92; RESP 24; TEMP 36.9; O2SAT 94
[2020-03-14 06:43] LABS: Glucose Point of Care 111 mg/dL (70-110)
[2020-03-14 07:47] VITALS: BP 144/86; PULSE 92; RESP 16; TEMP 36.4; O2SAT 96
[2020-03-14] MEDS: enoxaparin 40 mg/0.4 mL Syringe SUBCUT (09:24)
[2020-03-14] MEDS: lactobacillus 1 Tablet 1 TAB PO ×2 (09:24→14:43)
[2020-03-14] MEDS: metoprolol tartrate 25 mg Tablet 12.5 MG PO (09:25)
[2020-03-14] MEDS: insulin glargine 100 units/1 mL 30 UNIT SUBCUT (09:25)
[2020-03-14] MEDS: aspirin 81 mg EC Tablet PO (09:25)
[2020-03-14] MEDS: atorvastatin 40 mg Tablet 20 MG PO (09:25)
[2020-03-14] MEDS: lisinopril 5 mg Tablet PO (09:29)
--- NOTE | 2020-03-14 09:38 | PC.CHAP ---
Pastoral Care Encounter/Spiritual Assessment Type of Contact [] Declined order desk caller visit [] Patient/Family/Request visit [] Outpatient visit [] Follow-up visit [] Physician referral [] Code/Alert [x] Routine visit [] Staff referral [] Actively dying [] Patient sleeping [] Family support [] [] Out of room [] Palliative care [] [] Receiving care in room [] Pre-surgical visit [] Trauma [] Long length of stay [] ICU visit [] Other: Relational/Emotional Strength [] Patient feels connected with others/family/visitors/staff [] Distress [] Loneliness/isolation [] Abandonment Spirituality of Patient [] Person of Vaishali [] Attends Pentecostalism of their Vaishali [] Believes in Prayer [] Reads Bible or Episcopal materials [] There are Spiritual issues to be addressed Metal Cnc Operator Interventions [x] Prayer [] Active listening [] Non-anxious presence [] Spiritual/emotional support [] Crisis/trauma care [] Spiritual counseling [] Bereavement support [] Provided bereavement packet [] Provided Bible/devotional materials [] Provided toy/stuffed animal, coloring book to patient or family member [] Provided Communion [] Anointing/[place] [] Salvation [x] Completed spiritual assessment [] Other: Impact on Illness or Injury [] Angry [] Fearful [] Anxious [] Often cries [] Exhaustion [] Unable to work [] Unable to attend episcopal [] Unable to walk/stand [] Unable to read [] Unable to drive [] Unable to eat/drink [] Unable to sleep [] Unable to be with family [] Patient intubated [] Other: Summary Patient resting, connected with family on phone. Time spent with patient 5min
[2020-03-14 11:24] VITALS: BP 150/88; PULSE 95; RESP 18; TEMP 36.8
[2020-03-14 11:50] LABS: Glucose Point of Care 151 mg/dL (70-110)
--- NOTE | 2020-03-14 12:05 | XR_ITS ---
WS: [id number] XR chest 1V portable [id number] REASON FOR EXAM: PICC LINE INSERTION FINDINGS: A PICC line is seen extending from the right side the tip of the tube is in the mid superio r vena cava in adequate position. The heart and mediastinal interfaces are normal. The lung burns are well aerated no pneumonia pleural effusion pulmonary edema or mass effect. XR/XR chest 1V portable [id number] IMPRESSION: PICC line in good position. , There is evidence of a remote fracture of of the clavicle and the right which i s healed with deformity. This was reported to the technologist.
--- NOTE | 2020-03-14 12:16 | PM.DCS ---
Discharge Providers Date of Admission: 03/08/20 11:33 Date of Discharge: March 14, 2020 Attending Provider at Admission: Maura Hsieh DO Attending Provider at Discharge: Maura Hsieh DO Diagnoses at Discharge Discharge Diagnosis (1) Foot ulcer, right: Status: Acute Qualifiers: Non-pressure ulcer stage: unspecified non-pressure ulcer stage Qualified Code(s): L97.519 - Non-pressure chronic ulcer of other part of right foot with unspecified severity Reason for Visit Reason for Visit: Reason For Visit: DM FOOT ULCER Hospital Course Hospital Course: Patient was seen and evaluated in the emergency department noted to have concern for lower extremity cellulitis and osteomyelitis and admitted for further evaluation and treatment. Patient had just been seen in wound care clinic earlier that day and directed immediately to the hospital due to concern for infectious process. Patient was started on broad-spectrum antibiotics with vancomycin and Zosyn and surgical consult was obtained. Patient was kept n.p.o. and taken to the OR for debridement on initial hospital day. Patient returned to the medical surge floor from the OR and continued to have improvement. He was noted to have concern for osteomyelitis as well as significant lower extremity cellulitis and significant debridement was required. Recommendation was for patient to undergo right BKA due to the severity of illness and debridement that had to be performed including tendon debridement, however patient elected to continue with conservative management. He was kept on broad-spectrum IV antibiotics until cultures returned. Patient did have positive blood cultures and bone and tissue culture showing group B strep. Antibiotics were then transition to IV Rocephin. He continued to show improvement and repeat blood cultures were obtained. Echocardiogram was ordered showed diminished LVEF of 45% patient was started on lisinopril and statin, aspirin, and metoprolol. Wound VAC was placed by general surgeon. Patient had orders for PICC line placement once blood culture showed no growth. Discussed with patient plan for close outpatient follow-up and continued for home health services with wound VAC therapy and wound care services. Will need continued IV antibiotics for 6 to 8 weeks. Patient also started on insulin due to uncontrolled diabetes mellitus, newly diagnosed with an A1c of greater than 10. Patient reported doing well on date of discharge with no chest pain or shortness of breath, no abdominal pain or nausea. He denied any concerns with discharge to home. Discussed with patient plan of care including home health services, outpatient wound care follow-up and antibiotic needs. He verbalized understanding and agreed with plan. Physical Exam Const: COMMON NORMALS: oriented x3 and alert GENERAL APPEARANCE: cooperative ORIENTATION/CONSCIOUSNESS: Yes awake, Yes oriented to person, Yes oriented to place and Yes oriented to time HENMT: COMMON NORMALS: normocephalic and head/scalp atraumatic HEAD & SCALP: normocephalic and atraumatic Eye: COMMON NORMALS: PERRL PUPIL: Yes PERRL Neck/C-Spine: COMMON NORMALS: supple GENERAL: Yes normal visual inspection Resp: COMMON NORMALS: normal respiratory effort and clear to auscultation bilaterally EFFORT & INSPECTION: Yes able to speak in complete sentences AUSCULTATION: clear to auscultation bilaterally, no rhonchi and no wheezes Cardio: COMMON NORMALS: regular rate, regular rhythm and no murmurs RATE: regular rate RHYTHM: regular rhythm GI: COMMON NORMALS: soft to palpation and non-tender INSPECTION: No abdominal distension AUSCULTATION: Yes normoactive bowel sounds PALPATION: Yes soft Extremity: NARRATIVE EXTREMITY EXAM: Erythema and swelling in the right lower extremity improved, wound VAC in place Neuro: COMMON NORMALS: oriented x3 and CN's II-XII intact bilaterally SENSORIUM/ORIENTATION: Yes alert, Yes oriented to person, Yes oriented to place and Yes oriented to time SPEECH: speech normal Psych: COMMON NORMALS: mental status grossly normal and cooperative Discharge Data Data Completed and Pending: Completed Studies During Hospitalization Category Date Time Status XR chest 1V mike ble [id number] Urgent Exams 03/08/20 09:57 Completed Pathology: Surgic al [PTH] Routine Pth 03/08/20 19:26 [place] [id number] Rout ine Ultrasound 03/09/20 07:00 Completed CV echo complete* [id number] Routine Ultrasound 03/09/20 14:08 Completed Pending at discharge Category Date Time Status CXRP [XR chest 1V portable [id number]] R outine Exams 03/14/20 12:05 Ordered Anaerobic Culture Routine Lab 03/08/20 18:43 Results Blood Culture Sta t Lab 03/08/20 10:50 Results Labs from last 24 hours 03/14/20 03/14/20 03/13/20 11:43 06:30 19:39 POC Glucose 151 111 180 03/13/20 16:21 POC Glucose 187 Vitals: Last Vital Signs Temp 98.2 F 03/14/20 11:24 Pulse 95 03/14/20 11:24 Resp 18 03/14/20 11:24 BP 150/88 03/14/20 11:24 Pulse Ox 96 03/14/20 07:47 Discharge Plan Discharge Patient Disposition: Home Health Service Condition: Stable Prescriptions: New aspirin 81 mg Tablet,Delayed Release (Dr/Ec) 81 mg PO DAILY 30 Days Qty: 30 RF: 0 hydrocodone-acetaminophen 5-325 mg Tablet 1 tab PO Q4H PRN (Reason: Moderate To Severe Pain) 5 Days Qty: 20 RF: 0 metoprolol tartrate 25 mg Tablet 12.5 mg PO BID 30 Days Qty: 30 RF: 0 Lactobacillus acidoph-L.bulgar [Floranex] 1 million cell Tablet 1 tab PO QID 30 Days Qty: 120 RF: 0 Lantus Solostar U-100 Insulin 100 unit/mL (3 mL) insulin pen 30 unit SUBCUT DAILY 30 Days Qty: 15 RF: 0 Continued metformin 500 mg tablet 500 mg PO BID 30 Days Qty: 60 RF: 0 lisinopril 5 mg tablet 5 mg PO DAILY Qty: 30 RF: 0 atorvastatin [Lipitor] 20 mg tablet 20 mg PO DAILY Qty: 30 RF: 0 Discontinued nystatin 100,000 unit/gram cream 1 applic TOPICAL BID Qty: 15 RF: 1 mupirocin 2 % ointment 1 applic TOPICAL BID Qty: 15 RF: 1 doxycycline hyclate 100 mg tablet 100 mg PO BID 10 Days Qty: 20 RF: 0 Discharge Orders: Discharge Order (Routine); Ordered 03/14/20 Ordered By: Maura Hsieh Referrals: [facility] [Other] (This is the pharmacy that will be providing your IV medication. They will be having it delivered to your home and then your home health nurse will be out to teach how to administer this medication. If you have any questions about your medication or delivery issues, please call [facility] at the number provided.) [facility] Home Care ([facility]) [Outside] ([facility] [employer] [employer] will be your home health company that will be providing care as well as teaching how to administer your IV medication. If you have any questions or concerns about your home health, please call them at the number provided. You may also call [facility] Case Managment if you have any questions regarding your discharge at [phone]. [phone].) Tamara Dior MD [Physician] - 4-7 days (Appointment scheduled 03/16/2020 time 10:30am to officially establish care at clinic. ) Lázaro Klein MD [Physician] - 7-10 days (Follow-up with wound care on 03/22) Discharge Diet: Cardiac Discharge Activity: Limit activity as instructed Activity Restrictions/Additional Instructions: Started on Lantus 30 units daily. Continue to monitor blood sugars in the morning and in the evening and present a log to your primary care provider for further medication adjustment. 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
--- NOTE | 2020-03-14 13:31 | SUR.PHASEI ---
PICC NOTE PICC PLACED. SEE ASSESSMENTS FOR DETAILS. REPORT TO TENISHA DEWITT.
[2020-03-14] MEDS: cefTRIAXone 2,000 MG in sodium chloride 0.9% (plus) 50 ML 100 MG IV (14:43)
--- NOTE | 2020-03-14 16:37 | PM.PN ---
Subjective Subjective: Interval history: Patient has been doing well denies any fevers or chills Vitals/I&O/Wt Last Vital Signs Temp 98.2 F 03/14/20 11:24 Pulse 95 03/14/20 11:24 Resp 18 03/14/20 11:24 BP 150/88 03/14/20 11:24 Pulse Ox 96 03/14/20 07:47 03/14/20 03/14/20 03/14/20 06:59 14:59 22:59 Intake Total 480 / 1420 956 / 956 Output Total 1500 / 4250 1200 / 1700 500 / 1700 Balance -1020 / -2830 -244 / -744 -500 / -744 Weight last 48 hrs Weight 219 lb 11.2 oz Weight 223 lb 5 oz Physical Exam Narrative: EXAM NARRATIVE: Right foot: Good granulation tissue after the wound VAC was removed today Data : 03/13/20 05:32 03/13/20 05:32 Micro: Microbiology 03/08/20 18:43 Anaerobic Culture - Preliminary Foot - Right 03/09/20 09:45 Blood Culture - Final Blood NO GROWTH AFTER 5 DAYS 03/09/20 09:48 Blood Culture - Final Blood NO GROWTH AFTER 5 DAYS A&P Assessment and plan (1) Foot ulcer, right: Status post debridement with fifth metatarsal osteomyelitis, PICC line was placed today DC home on wound VAC and IV antibiotics Status: Acute Qualifiers: Non-pressure ulcer stage: unspecified non-pressure ulcer stage Qualified Code(s): L97.519 - Non-pressure chronic ulcer of other part of right foot with unspecified severity Attestations Medical Necessity Statement*: DC home today Coding Level of Care Code Acute Health Outcomes Liaison for [facility] Diagnoses Foot ulcer, right L97.519 Non-pressure ulcer stage: unspecified non-pressure ulcer stage
--- NOTE | 2020-03-14 17:27 | PC.NURSE ---
Discharge note' Patient was educated on all discharge information per doctors orders. Patient was educated on all medications with all side effect. Patient was educated on diabetes management including how and when to check blood sugar. Patient stated he understood all information discussed. IV removed with catheter in tact. Patient tolerated well with a pressure dressing applied. Patient was wheeled out by wheelchair by nurse to family member vehicle.
[2020-03-14 17:31] VITALS: BP 150/88; PULSE 95; RESP 18; TEMP 36.8; O2SAT 98
--- NOTE | 2020-03-15 12:07 | PC.SOCIAL ---
45 minutes spent on phone with insurance to deterimine PA for Lantus or what is preferred drug. Was rerouted 4 times. Pharmacy would not let me talk to anyone by phone had to leave a message with the updated script. Not sure if this will need any additional information. My number was left on message. Dr Hsieh gave order to substitute to Levemir same dose if this is on formulary. Per insurance plan this is preferred and therefore what was called to pharmacy.
== END 2020-03-14 14:05 | disposition home health service (06) | DRG 854 ==
LOC: ER 11:48 → MEDSURG 11:48
PROVIDERS: Internal Medicine; Surgery; Admitting Provider Family Medicine; Emergency Provider Family Medicine; Visit Provider Family Medicine
PROC: 0LBV0ZZ Excision of Right Foot Tendon, Open Approach (ICD-10-PCS; principal; 2020-03-08 16:30)
DX: A41.9 Sepsis, unspecified organism (principal); M86.171 Other acute osteomyelitis, right ankle and foot; L03.115 Cellulitis of right lower limb; E87.1 Hypo-osmolality and hyponatremia; E11.69 Type 2 diabetes mellitus with other specified complication; I10 Essential (primary) hypertension; E11.51 Type 2 diabetes mellitus with diabetic peripheral angiopathy without gangrene; B95.1 Streptococcus, group B, as the cause of diseases classified elsewhere
CPT/HCPCS: 12345; 36415; 36416; 36569; 71045; 80048; 80053; 80202; 82962; 83605; 83735; 84443; 85025; 87040; 87070; 87075; 87176; 87186; 87205; 88304; 93005; 93306; 93926; 96372; 96374; 97161; 97530; 99283; J0696; J1650; J1815; J2001; J2543; J2704; J3010; J3370; J7030; J7040; J7050

== ENCOUNTER 2020-03-22 08:23 | Outpatient (CLI) | payer OTHER, SELFPAY | END 2020-03-22 08:24 | disposition home or self-care (01) | LOC: WOUND 08:23 | PROVIDERS: Visit Provider Thoracic Surgery (Cardiothoracic Vascular Surgery) | DX: E11.621 Type 2 diabetes mellitus with foot ulcer (principal); L97.512 Non-pressure chronic ulcer of other part of right foot with fat layer exposed; L97.513 Non-pressure chronic ulcer of other part of right foot with necrosis of muscle | CPT/HCPCS: 11044; 11047; 97606; L4397 ==

== ENCOUNTER 2020-03-29 10:51 | Outpatient (CLI) | payer OTHER, SELFPAY | END 2020-03-29 10:52 | disposition home or self-care (01) | LOC: WOUND 10:52 | PROVIDERS: Visit Provider Thoracic Surgery (Cardiothoracic Vascular Surgery) | DX: E11.621 Type 2 diabetes mellitus with foot ulcer (principal); L97.514 Non-pressure chronic ulcer of other part of right foot with necrosis of bone | CPT/HCPCS: 11044; 11047; 97606 ==

== ENCOUNTER → 2020-04-05 08:41 | Outpatient (BNVA) | payer OTHER, SELFPAY | PROVIDERS: Referring Provider Thoracic Surgery (Cardiothoracic Vascular Surgery); Visit Provider Podiatrist Foot & Ankle Surgery | DX: L97.519 Non-pressure chronic ulcer of other part of right foot with unspecified severity (principal) | CPT/HCPCS: 73630 ==

== ENCOUNTER 2020-04-05 10:01 | Outpatient (CLI) | payer OTHER, SELFPAY | END 2020-04-05 10:02 | disposition home or self-care (01) | LOC: WOUND 10:01 | PROVIDERS: Visit Provider Thoracic Surgery (Cardiothoracic Vascular Surgery) | DX: E11.621 Type 2 diabetes mellitus with foot ulcer (principal); L97.514 Non-pressure chronic ulcer of other part of right foot with necrosis of bone | CPT/HCPCS: 11043; 11046 ==

== ENCOUNTER 2020-04-12 10:10 | Outpatient (CLI) | payer OTHER, SELFPAY | END 2020-04-12 10:11 | disposition home or self-care (01) | LOC: WOUND 10:11 | PROVIDERS: Visit Provider Thoracic Surgery (Cardiothoracic Vascular Surgery) | DX: E11.621 Type 2 diabetes mellitus with foot ulcer (principal); L97.513 Non-pressure chronic ulcer of other part of right foot with necrosis of muscle | CPT/HCPCS: 11042; 11045 ==

== ENCOUNTER 2020-04-19 09:23 | Outpatient (CLI) | payer OTHER, SELFPAY | END 2020-04-19 09:24 | disposition home or self-care (01) | LOC: WOUND 09:24 | PROVIDERS: Visit Provider Thoracic Surgery (Cardiothoracic Vascular Surgery) | DX: E11.621 Type 2 diabetes mellitus with foot ulcer (principal); L97.514 Non-pressure chronic ulcer of other part of right foot with necrosis of bone | CPT/HCPCS: 11044; 11047 ==

== ENCOUNTER 2020-04-26 13:03 | Outpatient (CLI) | payer OTHER, SELFPAY | END 2020-04-26 13:04 | disposition home or self-care (01) | LOC: WOUND 13:05 | PROVIDERS: Visit Provider Thoracic Surgery (Cardiothoracic Vascular Surgery) | DX: E11.621 Type 2 diabetes mellitus with foot ulcer (principal); L97.514 Non-pressure chronic ulcer of other part of right foot with necrosis of bone | CPT/HCPCS: 11042; 11045 ==

== ENCOUNTER 2020-05-03 09:11 | Outpatient (CLI) | payer OTHER, SELFPAY | END 2020-05-03 09:12 | disposition home or self-care (01) | LOC: WOUND 09:12 | PROVIDERS: Visit Provider Thoracic Surgery (Cardiothoracic Vascular Surgery) | DX: E11.621 Type 2 diabetes mellitus with foot ulcer (principal); L97.514 Non-pressure chronic ulcer of other part of right foot with necrosis of bone | CPT/HCPCS: 11043; 11046 ==

== ENCOUNTER 2020-05-10 08:25 | Outpatient (CLI) | payer OTHER, SELFPAY | END 2020-05-10 08:26 | disposition home or self-care (01) | LOC: WOUND 08:25 | PROVIDERS: Visit Provider Thoracic Surgery (Cardiothoracic Vascular Surgery) | DX: E11.621 Type 2 diabetes mellitus with foot ulcer (principal); L97.514 Non-pressure chronic ulcer of other part of right foot with necrosis of bone | CPT/HCPCS: 11044; 11047 ==

== ENCOUNTER 2020-05-16 09:57 | Inpatient (IN) | payer OTHER, SELFPAY ==
[2020-05-12 10:56] VITALS: BMI 23.2
[2020-05-16] VITALS (15 sets, daily range): BP systolic 113–151; BP diastolic 69–105; PULSE 98–120; RESP 10–20; TEMP 36.6–37.5; O2SAT 97–99
[2020-05-16] MEDS: sodium chloride 0.9% 1,000 ML 30 ML IV (06:21)
[2020-05-16 06:22] LABS: Glucose Point of Care 160 mg/dL (70-110)
--- NOTE | 2020-05-16 06:25 | P.ANESASSM_ITS ---
Pre-Anesthetic Assessment Pre-Anesthetic Assessment: Height/Weight: Height 1.93 m Weight 86.636 kg Temp Pulse Resp BP Pulse Ox 98.2 F 120 H 18 126/105 99 05/16/20 06:03 05/16/20 06:03 05/16/20 06:03 05/16/20 06:03 05/16/20 06:03 Preop Diagnosis: Right below-knee amputation Proposed Procedure: Operation Date: 05/16/20 07:00 Proposed Procedures p BKA (Below Knee Amputation)(Right) - Lázaro Klein MD Last intake: Intake Last Liquid Date 05/15/20 Last Liquid Time 21:00 Last Solid Date 05/15/20 Last Solid Time 21:00 Social: Social History: No alcohol and No tobacco Exam: Pre-Anes Outpt Exam: alert, oriented x 3, clear to auscultation bilaterally and regular rate & rhythm Airway: Submandibular: WNL Cervical ROM: WNL MP: 1 Dentition: Other (teeth ok) History/ROS: No significant history except as noted Pulmonary: Pulmonary: None reported CV/HEM: CV/HEM: HTN and PVD : : None reported Hepatic: Hepatic: None reported GI: GI: None reported Metabolic: Metabolic: DM and Hyperlipidemia Neuropsych: Neuropsych: None reported Anesthetic Plan: ASA status: 4 Anesthesia: Anesthesia Evaluation and Gener al Risk of > 500 ml blood loss (7ml/kg in children): Yes, adequate IV access and fluids planned Meds/Allergies Current Medications: Current Medications Generic Name Dose Route Start Last Admin Trade Name Freq PRN Reason Stop Dose Admin Sodium Chloride 1,000 mls @ 30 ml s/hr 05/16/20 06:00 05/16/20 06:21 Sodium Chloride 0.9% IV 05/17/20 05:59 30 mls/hr .Q24H MALKA Administration PFSH Anesthesia PFSH: Medical History Diabetes mellitus Foot ulcer, right HTN (hypertension) Osteomyelitis of ankle or foot, acute PVD (peripheral vascular disease) Surgical History No pertinent past surgical history Social History Smoking and tobacco status: never smoked Alcohol intake: never Data Anesthesia Other Labs: Laboratory Results - last 48 hr 05/16/20 06:19 POC Glucose 160 Cardiac Studies: No Data to Display
--- NOTE | 2020-05-16 06:32 | W.PM.OPSUD ---
Surgery/Procedure H&P Update DATE OF PROCEDURE: May 16, 2020 DATE H&P PERFORMED: 05/10/20 H&P UPDATE INFORMATION: I have reviewed H&P completed within last 30 days, I have examined patient prior to procedure and No changes to prior documentation PREOP DIAGNOSIS: Right below-knee amputation PRIMARY INDICATION FOR PROCEDURE: Extensive diabetic foot infection with resulting functional loss of foot PLANNED PROCEDURE: Operation Date: 05/16/20 07:00 Proposed Procedures p BKA (Below Knee Amputation)(Right) - Lázaro Klein MD
[2020-05-16 06:49] LABS: Basophils # 0.1 10^3/uL (0.0-0.1); Basophils % 0.8 %; Eosinophils # 0.1 10^3/uL (0.0-0.8); Eosinophils % 1.5 %; Hematocrit 35.4 % (42.0-52.0); Hemoglobin 11.1 g/dL (11.7-16.6); Lymphocytes # 1.7 10^3/uL (0.8-4.8); Lymphocytes % 22.9 %; Mean Corpuscular HGB Conc 31.4 g/dL (30.0-36.0); Mean Corpuscular Hemoglobin 26.4 pg (28.0-34.0); Mean Corpuscular Volume 84.1 fL (80-94); Mean Platelet Volume 9.5 fL (7.4-10.4); Monocytes # 0.7 10^3/uL (0.2-0.9); Monocytes % 9.2 %; Neutrophils # 4.8 10^3/uL (1.8-7.7); Neutrophils % 64.1 %; Nucleated Red Blood Cells % 0 %; Platelet Count 384 10^3/cmm (130-400); Red Blood Count 4.21 10^6/uL (4.1-5.3); Red Cell Distribution Width 13.6 % (12.1-15.1); White Blood Count 7.5 10^3/uL (4.0-10.0)
[2020-05-16 06:57] LABS: Anion Gap 17.3 (5-19); Blood Urea Nitrogen 21 mg/dL (6-20); Calcium 9.8 mg/dL (8.5-10.5); Carbon Dioxide 25 mmol/L (22-29); Chloride 98 mmol/L (98-107); Glomerular Filtration Rate 79.1 mL/min (90-130); Glucose 172 mg/dL (65-115); Osmolality Calculated 283 mOsm/kg (285-295); Potassium 4.3 mmol/L (3.5-5.1); Sodium 136 mmol/L (136-145)
[2020-05-16] MEDS: fentaNYL 50 mcg/mL INJ 2mL IVP (06:59)
--- NOTE | 2020-05-16 07:00 | ANES.PROC ---
Anesthesia Procedures Procedure/Date: 05/16/20 Nerve Block ^: Nerve Block 1: Main Anesthesia: general anesthesia Time Out Performed: Yes Consent: requested by attending/covering physician, risks and benefits reviewed and patient agrees to proceed Nerve block location: adductor canal (right) Anesthesia monitors applied: pulse oximetry, EKG, BP cuff and oxygen Nerve block position: supine Anesthetic Used: ropivicaine 0.5% and with decadron (4mg) Amount of anesthesia used (mL): 20 Ultrasound used to: recognize landmarks Nerve Stimulator Used?: No Interscalene/Femoral BLK: 4 stimuplex 21 g needle used for position and inplane approach, visualize local anesthetic spread and no vascular puncture identified Injection: neg aspiration of heme Patient Tolerated Procedure: well and no complications Complications: none
[2020-05-16] MEDS: midazolam 1 mg/mL INJ 5 ML 5 MG IVP (07:01)
--- NOTE | 2020-05-16 07:01 | ANES.PROC ---
Anesthesia Procedures Procedure/Date: 05/16/20 Nerve Block ^: Nerve Block 2: Main Anesthesia: general anesthesia Time Out Performed: Yes Consent: requested by attending/covering physician, risks and benefits reviewed and patient agrees to proceed Nerve block location: popliteal (right) Anesthesia monitors applied: pulse oximetry, EKG, BP cuff and oxygen Nerve block position: lateral (left) Anesthetic Used: ropivicaine 0.5% and with decadron (4mg) Amount of anesthesia used (mL): 20 Ultrasound used to: recognize landmarks Nerve Stimulator Used?: Yes Interscalene/Femoral BLK: 4 stimuplex 21 g needle used for position and inplane approach, visualize local anesthetic spread and no vascular puncture identified Injection: neg aspiration of heme Patient Tolerated Procedure: well and no complications Complications: none
[2020-05-16] MEDS: vancomycin 1,000 MG SDV 1000 MG IRRIGATION ×2 (07:32→10:48)
--- NOTE | 2020-05-16 10:01 | P.OP_ITS ---
Operative Report Date of procedure: May 16, 2020 Pre-op Diagnosis: Right below-knee amputation Post-op diagnosis: same Procedure Done: Right below-knee amputation Specimens removed/disposition: Right leg below-knee Surgeon: Lázaro Klein Anesthesia: General and Nerve Block Estimated blood loss (mL): 200 Complications: None Condition: stable Disposition: PACU Brief History: 49-year-old diabetic gentleman originally presented to [facility] [place] care services with a wendy necrotizing infection of the right foot that required extensive debridement on the same day presentation to the operating room theater, by Dr. Mcduffie. He is required extensive wound care management but due to the intense infection and delayed presentation, he has lost function of his right foot. He is been evaluated by Dr. Del Rosario from podiatry as well as other surgeons of the service, all feel that amputation is in order due to the dysfunction of his right foot. He is attempted ambulation with a posterior splint this is resulted in rolling of his foot and further injury to the lateral aspect. He cannot dorsiflex his foot at all and has extensive dorsal wound. He now wishes for formal amputation. Details the risk of the procedure And frankly discussed. Proper consents have been reviewed and signed. Procedure: His entire right lower extremity was sterilely prepped and draped. Marking pen was utilized to determine our lines of transection to include a generous posterior flap. #10 scalpel blade was utilized to incise the skin circumferentially along the previously placed planned line of transection. This was slightly more proximal than usual due to the skin changes noted posteriorly with concerns of viability along the incision line. Saphenous vein was controlled medially and secured prior to division. This was continued down to the tibia where periosteal elevator was utilized to strip periosteum proximally. This was done circumferentially. Next, transection of the tibia was performed utilizing powered saw. Anterior surface of the tibia was beveled utilizing saw and rasp Scalpel blade was utilized continue further transection of musculature and fascia down to the fibula, which was also isolated and periosteum elevated proximally. Again, powered saw was utilized to perform transection proximally. Amputation was then completed utilizing amputation knife. Areas of bleeding were controlled utilizing careful case of cautery or suture ligature. Remaining bulk of musculature on the posterior flap was beveled to allow for appropriate closure with elevation to the anterior transection line. Wound was then irrigated with antibiotic solution and hemostasis confirmed. A large Hemovac drain was placed and secured. Fascia was reapproximated with interrupted 2-0 Vicryl suture. Subcutaneous layer was reapproximated with running 3-0 Vicryl suture. Skin was then reapproximated utilizing 3-0 monofilament suture in interrupted mattress fashion. Xeroform gauze was applied followed by appropriate padded dressings. Knee was placed in an immobilizer. He was awakened from anesthesia and extubated and taken to the postoperative care unit where he remains quite comfortable having received a preoperative regional block by Dr. Ramírez. I have counseled with his by phone.
[2020-05-16] MEDS: sodium chloride 0.45% 1,000 ML 75 ML IV ×2 (10:39→22:42)
[2020-05-16] MEDS: sodium chloride 0.9% 50 ML 100 ML (10:47)
[2020-05-16] MEDS: ceFAZolin 1,000 MG in sodium chloride 0.9% (plus) 50 ML 100 MG IV ×2 (14:40→22:41)
[2020-05-16 20:13] LABS: Basophils % 0.2 %; Hematocrit 28.2 % (42.0-52.0); Lymphocytes # 1.1 10^3/uL (0.8-4.8); Lymphocytes % 9.6 %; Mean Corpuscular HGB Conc 31.9 g/dL (30.0-36.0); Mean Corpuscular Hemoglobin 27.2 pg (28.0-34.0); Mean Corpuscular Volume 85.2 fL (80-94); Mean Platelet Volume 9.9 fL (7.4-10.4); Monocytes # 0.9 10^3/uL (0.2-0.9); Monocytes % 7.3 %; Neutrophils # 9.5 10^3/uL (1.8-7.7); Neutrophils % 81.9 %; Nucleated Red Blood Cells % 0 %; Platelet Count 354 10^3/cmm (130-400); Red Blood Count 3.31 10^6/uL (4.1-5.3); Red Cell Distribution Width 13.8 % (12.1-15.1); White Blood Count 11.6 10^3/uL (4.0-10.0)
[2020-05-17] VITALS (9 sets, daily range): BP systolic 121–150; BP diastolic 73–89; PULSE 80–101; RESP 16–18; TEMP 36.4–37.2; O2SAT 95–100
[2020-05-17] MEDS: oxyCODONE-APAP 10-325 mg Tablet 1 TAB PO ×3 (00:09→22:58)
[2020-05-17] MEDS: ceFAZolin 1,000 MG in sodium chloride 0.9% (plus) 50 ML 100 MG IV (05:58)
--- NOTE | 2020-05-17 06:18 | PC.NURSE ---
PATIENT HAD MINIMAL OUTPUT IN THE HEMOVAC. EXCELLENT URINE OUTPUT THROUGHOUT THE SHIFT. NO COMPLAINT OF PAIN, BUT PRN MEDICATION GIVEN TO HELP KEEP PAIN UNDER CONTROL.
--- NOTE | 2020-05-17 06:54 | PM.PN ---
Subjective Subjective: Interval history: Postop day #1 status post right below-knee amputation. Rested well last night. Postoperative discomfort is under good control. Low Hemovac drain output. Surgical dressings in place. Mr. Ibanez is sleeping on rounds this morning. Nurses report he had a very good night. When I saw him on rounds late yesterday he was very comfortable and in good spirits. He appears to be accepting the BKA well. Vitals/I&O/Wt Last Vital Signs Temp 97.8 F 05/17/20 04:00 Pulse 101 H 05/17/20 04:00 Resp 18 05/17/20 04:00 BP 121/82 05/17/20 04:00 Pulse Ox 98 05/17/20 04:00 05/16/20 05/16/20 05/17/20 14:59 22:59 06:59 Intake Total 530 / 530 1793.75 / 2323.75 410 / 2733.75 Output Total 1010 / 1010 1850 / 2860 350 / 3210 Balance -480 / -480 -56.25 / -536.25 60 / -476.25 Physical Exam Extremity: COMMON NORMALS: normal to inspection (Surgical dressing remains in place. Low output from the Hemovac drain.) Data : 05/16/20 19:20 05/16/20 06:15 A&P Assessment and plan (1) Status post below knee amputation of right lower extremity: Postop day #1 status post right below-knee amputation Plan: I will remove Hemovac drain and surgical dressing this evening. Will plan to discharge to home with home health services tomorrow. Physical therapy will begin transfer training today. Status: Acute Attestations Medical Necessity Statement*: Status post right below amputation secondary to severe diabetic infection of right foot with dysfunction Time Spent in Patient Care: less than 15 minutes Coding Level of Care Code Acute Photography Instructor for Bhavin Castro Diagnoses Status post below knee amputation of right lower extremity Z89.511
[2020-05-17 07:18] LABS: Anion Gap 13.9 (5-19); Blood Urea Nitrogen 12 mg/dL (6-20); Calcium 8.7 mg/dL (8.5-10.5); Carbon Dioxide 24 mmol/L (22-29); Chloride 101 mmol/L (98-107); Glomerular Filtration Rate 119.4 mL/min (90-130); Glucose 148 mg/dL (65-115); Osmolality Calculated 279 mOsm/kg (285-295); Potassium 3.9 mmol/L (3.5-5.1); Sodium 135 mmol/L (136-145)
[2020-05-17] MEDS: lisinopril 5 mg Tablet 10 MG PO (08:37)
[2020-05-17] MEDS: atorvastatin 40 mg Tablet 20 MG DOBHOFF (08:37)
[2020-05-17 10:01] LABS: Glucose Point of Care 256 mg/dL (70-110)
[2020-05-17 11:02] LABS: Glucose Point of Care 224 mg/dL (70-110)
--- NOTE | 2020-05-17 11:52 | PC.CHAP ---
Pastoral Care Encounter/Spiritual Assessment Type of Contact [] Declined steward/stewardess chief cargo vessel visit [] Patient/Family/Request visit [] Outpatient visit [] Follow-up visit [] Physician referral [] Code/Alert [x] Routine visit [] Staff referral [] Actively dying [] Patient sleeping [] Family support [] [] Out of room [] Palliative care [] [x] Receiving care in room [] Pre-surgical visit [] Trauma [] Long length of stay [] ICU visit [] Other: Relational/Emotional Strength [x] Patient feels connected with others/family/visitors/staff [] Distress [] Loneliness/isolation [] Abandonment Spirituality of Patient [] Person of Vaishali [] Attends Muslim of their Vaishali [] Believes in Prayer [] Reads Bible or Hindu materials [] There are Spiritual issues to be addressed [place] Interventions [] Prayer [] Active listening [] Non-anxious presence [] Spiritual/emotional support [] Crisis/trauma care [] Spiritual counseling [] Bereavement support [] Provided bereavement packet [] Provided Bible/devotional materials [] Provided toy/stuffed animal, coloring book to patient or family member [] Provided Communion [] Anointing/[place] [] Salvation [x] Completed spiritual assessment [] Other: Impact on Illness or Injury [] Angry [] Fearful [] Anxious [] Often cries [] Exhaustion [] Unable to work [] Unable to attend religious [] Unable to walk/stand [] Unable to read [] Unable to drive [] Unable to eat/drink [] Unable to sleep [] Unable to be with family [] Patient intubated [] Other: Summary Amputated foot has a good attitude, needs recovery time, gets to home tomorrow Know prayer Time spent with patient 10 mins
[2020-05-17 16:53] LABS: Glucose Point of Care 224 mg/dL (70-110)
--- NOTE | 2020-05-17 20:12 | PM.PN ---
Subjective Subjective: Interval history: Mr. Ibanez looks quite good. A bit of discomfort but appears to be easily controlled with oral narcotics. Very low Hemovac drain output. Vitals/I&O/Wt Last Vital Signs Temp 98.2 F 05/17/20 15:23 Pulse 90 05/17/20 15:23 Resp 18 05/17/20 18:36 BP 123/81 05/17/20 15:23 Pulse Ox 95 05/17/20 18:36 05/17/20 05/17/20 05/17/20 06:59 14:59 22:59 Intake Total 410 / 2733.75 240 / 240 240 / 480 Output Total 350 / 3210 1725 / 1725 425 / 2150 Balance 60 / -476.25 -1485 / -1485 -185 / -1670 Physical Exam Extremity: NARRATIVE EXTREMITY EXAM: Right BKA incision is clean and dry and intact. Hemovac drain was removed. Incision line painted with Betadine and recovered. Posterior flap appears to be viable. He appears to be adjusting to the amputation well. Data : 05/16/20 19:20 05/17/20 06:35 A&P Assessment and plan (1) Status post below knee amputation of right lower extremity: Postop day #1 status post right BKA. Hemovac drain removed. Plan: Discharged to home tomorrow with home health services. He will follow-up in wound care services next Saturday. Status: Acute Attestations Medical Necessity Statement*: Postop day 1 status post BKA secondary to severe right foot diabetic infection Time Spent in Patient Care: 16 - 35 minutes Coding Level of Care Code Acute Balancing Machine Set Up Worker for Bhavin Castro Diagnoses Status post below knee amputation of right lower extremity Z89.511
[2020-05-18] VITALS: BP 120/81; PULSE 92; RESP 18; TEMP 37.1; O2SAT 100
--- NOTE | 2020-05-18 00:53 | PC.NURSE ---
ADDENDUM 2000: DR. FOY ON FLOOR TO REMOVE PATIENTS HEMOVAC DRAIN. DRESSING REMOVED, SURGICAL SITE CLEANED WITH BETADINE, AND 2X2 WITH KERLEX DRESSED OVER BKA. THE PATIENT TOLERATED WELL.
[2020-05-18 03:30] VITALS: RESP 16
[2020-05-18] MEDS: oxyCODONE-APAP 10-325 mg Tablet 1 TAB PO ×2 (03:30→08:01)
--- NOTE | 2020-05-18 03:31 | PC.NURSE ---
THE PATIENT IS REPORTING SINCE THE DOCTOR REMOVED HIS BENI WRAP, HE HAS BEEN EXPERIENCING JENIFFER HORSES IN HIS RIGHT LEG IF HE MOVES IT. PAIN MEDICATION GIVEN TO TRY AND HELP WITH THE DISCOMFORT.
[2020-05-18 04:00] VITALS: BP 128/76; PULSE 93; RESP 16; TEMP 36.5; O2SAT 98
--- NOTE | 2020-05-18 06:51 | P.PN_ITS ---
Subjective Subjective: Interval history: Rested well last night. Postsurgical pain under good control. He is eager for discharge. Vitals/I&O/Wt Last Vital Signs Temp 97.7 F 05/18/20 04:00 Pulse 93 05/18/20 04:00 Resp 16 05/18/20 04:00 BP 128/76 05/18/20 04:00 Pulse Ox 98 05/18/20 04:00 05/17/20 05/17/20 05/18/20 14:59 22:59 06:59 Intake Total 240 / 240 600 / 840 840 / 1680 Output Total 1725 / 1725 625 / 2350 1225 / 3575 Balance -1485 / -1485 -25 / -1510 -385 / -1895 Physical Exam Extremity: NARRATIVE EXTREMITY EXAM: BKA incision is clean and dry. Minimal postop swelling. Data : 05/16/20 19:20 05/17/20 06:35 A&P Assessment and plan (1) Status post below knee amputation of right lower extremity: Postop day #2 status post right BKA Plan: Discharged to home with home health services Status: Acute Attestations Medical Necessity Statement*: Status post right below-knee amputation secondary to severe necrotizing infection of right foot with motor dysfunction Time Spent in Patient Care: 16 - 35 minutes Coding Level of Care Code Acute Loan Processing Supervisor for Bhavin Castro Diagnoses Status post below knee amputation of right lower extremity Z89.511
--- NOTE | 2020-05-18 06:57 | P.DS_ITS ---
Discharge Providers Date of Admission: 05/16/20 10:00 Date of Discharge: May 18, 2020 Attending Provider at Admission: Lázaro Klein MD Attending Provider at Discharge: Lázaro Klein MD Diagnoses at Discharge Discharge Diagnosis (1) Status post below knee amputation of right lower extremity: Status: Acute Reason for Visit Reason for Visit: below the knee amputation Hospital Course Discharge Summary: Mr. Ibanez was electively admitted on May 16 for planned right below-knee amputation due to a severe necrotizing infection of his right foot for which he underwent extensive debridement previously and was being followed in wound care. He has also been evaluated by Dr. Del Rosario from podiatry and essentially has a dysfunctional right foot and is able to dorsiflex. He has a large right dorsal wound with exposed bone that would require further extensive resection of bone making the foot essentially unstable at the ankle. He has been previously recommended that he undergo right BKA by multiple providers in order to allow for return to function with appropriate prosthetic ambulation. After several visits in wound care he has now agreed, so he was electively admitted on May 16 3 underwent a right below-knee amputation. Postoperatively he is done very well with pain under good control. He appears to be excepting the recent surgery and remains in good spirits. Incision is clean and dry. Hemovac drain was removed last night. Surgical dressings were placed. Vital signs have been stable. He will be discharged to home today with home health services. He is undergone physical therapy education and training while in the hospital this will continue as an outpatient. He will follow-up in wound care services next Saturday. At the time of discharge she is in stable condition. Physical Exam Extremity: NARRATIVE EXTREMITY EXAM: Right BKA incision is clean and dry. No evidence for infection. Discharge Data Data Completed and Pending: Pending at discharge Category Date Time Status Leukocyte Reduced RBC Routine Lab 05/16/20 06:15 Results Type and Screen R outine Lab 05/16/20 06:15 Results Pathology: Surgic al [PTH] Routine Pth 05/16/20 07:48 Received Labs from last 24 hours 05/17/20 05/17/20 05/17/20 16:47 10:46 09:57 Sodium Potassium Chloride Carbon Dioxide Anion Gap BUN Creatinine GFR Calculation Glucose POC Glucose 224 224 256 Calculated Osmolal ity Calcium 05/17/20 06:35 Sodium 135 L Potassium 3.9 Chloride 101 Carbon Dioxide 24 Anion Gap 13.9 BUN 12 Creatinine 0.7 GFR Calculation 119.4 Glucose 148 H POC Glucose Calculated Osmolal ity 279 L Calcium 8.7 Vitals: Last Vital Signs Temp 97.7 F 05/18/20 04:00 Pulse 93 05/18/20 04:00 Resp 16 05/18/20 04:00 BP 128/76 05/18/20 04:00 Pulse Ox 98 05/18/20 04:00 Discharge Plan Discharge Patient Disposition: Home Health Service Condition: Stable Prescriptions: [place] 5-325 mg tablet 1 tab PO Q6H Qty: 20 RF: 0 Continued atorvastatin [Lipitor] 20 mg tablet 20 mg PO DAILY Qty: 30 RF: 0 (DME) blood-glucose meter [ReliOn All-In-One Meter] Kit See Rx Instructions .ROUTE .MEDSUPPLY Qty: 1 RF: 0 metformin 500 mg tablet 1,000 mg PO BID RF: 0 lisinopril 5 mg tablet 10 mg PO DAILY RF: 0 Discharge Orders: Discharge Order (Routine); Ordered 05/18/20 Ordered By: Lázaro Klein Referrals: [facility] ([facility], [Staff Physician] - 05/24/20 Discharge Diet: Usual diet Discharge Activity: As per PT/OT instructions Activity Restrictions/Additional Instructions: May remove bandage in 2 days May begin daily showers in 2 days No ointments on incision Report drainage, redness, heat, increased pain, or swelling to clinic Discharge Attestations Time Spent in Discharge Care*: less than 30 min Specific Discharge Activities: Specific discharge activities: educating patient, discussing with piano case maker/social workers/dc planners, documenting/other paperwork and evaluating patient/reviewing data Status at Discharge: Cognitive status at discharge: cognitively intact , Behavioral status at discharge: cooperative , Functional status at discharge: other assisted ambulation Overall status at discharge: patient has a new baseline Quality Metrics Clinical Quality Measures During this hospital stay, did patient experience: None Coding Level of Care Code Acute Risk And Insurance Consultant for Bhavin Castro Diagnoses Status post below knee amputation of right lower extremity Z89.511
[2020-05-18 07:43] VITALS: BP 128/76; PULSE 93; RESP 16; TEMP 36.5; O2SAT 98
[2020-05-18 07:45] VITALS: BP 150/87; PULSE 98; RESP 18; TEMP 36.9; O2SAT 100
[2020-05-18] MEDS: lisinopril 5 mg Tablet 10 MG PO (08:00)
[2020-05-18] MEDS: atorvastatin 40 mg Tablet 20 MG DOBHOFF (08:00)
[2020-05-18 08:01] VITALS: RESP 20
== END 2020-05-18 10:42 | disposition home health service (06) | DRG 240 ==
LOC: MEDSURG 09:57
PROVIDERS: Admitting Provider Thoracic Surgery (Cardiothoracic Vascular Surgery); Visit Provider Thoracic Surgery (Cardiothoracic Vascular Surgery)
PROC: 0Y6H0Z1 Detachment at Right Lower Leg, High, Open Approach (ICD-10-PCS; CPT 27880; principal; 2020-05-16 07:00)
DX: E11.52 Type 2 diabetes mellitus with diabetic peripheral angiopathy with gangrene (principal); I96 Gangrene, not elsewhere classified; Z79.84 Long term (current) use of oral hypoglycemic drugs; I10 Essential (primary) hypertension; E11.51 Type 2 diabetes mellitus with diabetic peripheral angiopathy without gangrene; E78.5 Hyperlipidemia, unspecified
CPT/HCPCS: 12345; 36415; 36416; 80048; 82962; 85025; 85610; 86850; 86900; 86920; 88307; 96374; 96375; 97161; 97530; G0378; J0690; J1100; J2001; J2250; J2704; J2795; J3010; J3370; J3490; J7030

== ENCOUNTER 2020-05-24 08:06 | Outpatient (CLI) | payer OTHER, SELFPAY | END 2020-05-24 08:07 | disposition home or self-care (01) | LOC: WOUND 08:07 | PROVIDERS: Visit Provider Thoracic Surgery (Cardiothoracic Vascular Surgery) | DX: E11.621 Type 2 diabetes mellitus with foot ulcer (principal); L97.519 Non-pressure chronic ulcer of other part of right foot with unspecified severity; Z89.511 Acquired absence of right leg below knee | CPT/HCPCS: 99212; L8440 ==

== ENCOUNTER 2020-05-31 08:41 | Outpatient (CLI) | payer OTHER, SELFPAY | END 2020-05-31 08:42 | disposition home or self-care (01) | LOC: WOUND 08:45 | PROVIDERS: Visit Provider Thoracic Surgery (Cardiothoracic Vascular Surgery) | DX: Z09 Encounter for follow-up examination after completed treatment for conditions other than malignant neoplasm (principal); Z89.511 Acquired absence of right leg below knee | CPT/HCPCS: 99212 ==

== ENCOUNTER 2020-06-07 08:46 | Outpatient (CLI) | payer OTHER, SELFPAY | END 2020-06-07 08:47 | disposition home or self-care (01) | LOC: WOUND 08:49 | PROVIDERS: Visit Provider Thoracic Surgery (Cardiothoracic Vascular Surgery) | DX: Z89.511 Acquired absence of right leg below knee (principal) | CPT/HCPCS: 99212 ==

== ENCOUNTER 2020-06-14 08:46 | Outpatient (CLI) | payer OTHER, SELFPAY | END 2020-06-14 08:47 | disposition home or self-care (01) | LOC: WOUND 08:48 | PROVIDERS: Visit Provider Thoracic Surgery (Cardiothoracic Vascular Surgery) | DX: Z09 Encounter for follow-up examination after completed treatment for conditions other than malignant neoplasm (principal); Z89.511 Acquired absence of right leg below knee | CPT/HCPCS: 99212; L8440 ==

== ENCOUNTER 2020-06-21 15:44 | Outpatient (CLI) | payer OTHER, SELFPAY | END 2020-06-21 15:45 | disposition home or self-care (01) | LOC: WOUND 15:45 | PROVIDERS: Visit Provider Thoracic Surgery (Cardiothoracic Vascular Surgery) | DX: Z09 Encounter for follow-up examination after completed treatment for conditions other than malignant neoplasm (principal); Z89.511 Acquired absence of right leg below knee | CPT/HCPCS: 99212; L8440 ==

== ENCOUNTER 2020-06-28 14:43 | Outpatient (CLI) | payer OTHER, SELFPAY | END 2020-06-28 14:44 | disposition home or self-care (01) | LOC: WOUND 14:44 | PROVIDERS: Visit Provider Nurse Practitioner Family | DX: Z09 Encounter for follow-up examination after completed treatment for conditions other than malignant neoplasm (principal); Z89.511 Acquired absence of right leg below knee | CPT/HCPCS: 99212 ==

== ENCOUNTER 2020-07-14 09:13 | Outpatient (CLI) | payer OTHER, SELFPAY | END 2020-07-14 09:14 | disposition home or self-care (01) | LOC: WOUND 09:13 | PROVIDERS: Visit Provider Nurse Practitioner Family | DX: E11.622 Type 2 diabetes mellitus with other skin ulcer (principal); L97.812 Non-pressure chronic ulcer of other part of right lower leg with fat layer exposed; Z89.511 Acquired absence of right leg below knee | CPT/HCPCS: 11042 ==

== ENCOUNTER 2020-07-19 10:59 | Outpatient (CLI) | payer OTHER, SELFPAY | END 2020-07-19 11:00 | disposition home or self-care (01) | LOC: WOUND 11:00 | PROVIDERS: Visit Provider Thoracic Surgery (Cardiothoracic Vascular Surgery) | DX: E11.622 Type 2 diabetes mellitus with other skin ulcer (principal); L97.812 Non-pressure chronic ulcer of other part of right lower leg with fat layer exposed; Z89.511 Acquired absence of right leg below knee | CPT/HCPCS: 11042 ==

== ENCOUNTER 2020-07-26 10:18 | Outpatient (CLI) | payer OTHER, SELFPAY | END 2020-07-26 10:19 | disposition home or self-care (01) | LOC: WOUND 10:19 | PROVIDERS: Visit Provider Thoracic Surgery (Cardiothoracic Vascular Surgery) | DX: E11.622 Type 2 diabetes mellitus with other skin ulcer (principal); L97.812 Non-pressure chronic ulcer of other part of right lower leg with fat layer exposed; Z89.511 Acquired absence of right leg below knee | CPT/HCPCS: 11042 ==

== ENCOUNTER 2020-08-02 10:08 | Outpatient (CLI) | payer OTHER, SELFPAY | END 2020-08-02 10:09 | disposition home or self-care (01) | LOC: WOUND 10:08 | PROVIDERS: Visit Provider Thoracic Surgery (Cardiothoracic Vascular Surgery) | DX: E11.622 Type 2 diabetes mellitus with other skin ulcer (principal); L97.812 Non-pressure chronic ulcer of other part of right lower leg with fat layer exposed; Z89.511 Acquired absence of right leg below knee | CPT/HCPCS: 11042 ==

== ENCOUNTER 2020-08-09 10:13 | Outpatient (CLI) | payer OTHER, SELFPAY | END 2020-08-09 10:14 | disposition home or self-care (01) | LOC: WOUND 10:14 | PROVIDERS: Visit Provider Thoracic Surgery (Cardiothoracic Vascular Surgery) | DX: E11.622 Type 2 diabetes mellitus with other skin ulcer (principal); L97.812 Non-pressure chronic ulcer of other part of right lower leg with fat layer exposed; Z89.511 Acquired absence of right leg below knee | CPT/HCPCS: 11042 ==

== ENCOUNTER 2020-08-16 09:58 | Outpatient (CLI) | payer OTHER, SELFPAY | END 2020-08-16 09:59 | disposition home or self-care (01) | LOC: WOUND 09:58 | PROVIDERS: Visit Provider Thoracic Surgery (Cardiothoracic Vascular Surgery) | DX: E11.622 Type 2 diabetes mellitus with other skin ulcer (principal); L97.512 Non-pressure chronic ulcer of other part of right foot with fat layer exposed; Z89.511 Acquired absence of right leg below knee | CPT/HCPCS: 11042 ==

== ENCOUNTER 2020-08-23 08:58 | Outpatient (CLI) | payer OTHER, SELFPAY | END 2020-08-23 08:59 | disposition home or self-care (01) | LOC: WOUND 08:58 | PROVIDERS: Visit Provider Thoracic Surgery (Cardiothoracic Vascular Surgery) | DX: E11.622 Type 2 diabetes mellitus with other skin ulcer (principal); L97.813 Non-pressure chronic ulcer of other part of right lower leg with necrosis of muscle; Z89.511 Acquired absence of right leg below knee | CPT/HCPCS: 11042 ==

== ENCOUNTER 2020-08-30 10:01 | Outpatient (CLI) | payer OTHER, SELFPAY | END 2020-08-30 10:02 | disposition home or self-care (01) | LOC: WOUND 10:01 | PROVIDERS: Visit Provider Thoracic Surgery (Cardiothoracic Vascular Surgery) | DX: E11.622 Type 2 diabetes mellitus with other skin ulcer (principal); L97.812 Non-pressure chronic ulcer of other part of right lower leg with fat layer exposed; Z89.511 Acquired absence of right leg below knee | CPT/HCPCS: 11042; L8440 ==

== ENCOUNTER 2020-09-06 10:29 | Outpatient (CLI) | payer OTHER, SELFPAY | END 2020-09-06 10:30 | disposition home or self-care (01) | LOC: WOUND 10:30 | PROVIDERS: Visit Provider Nurse Practitioner Family | DX: E11.621 Type 2 diabetes mellitus with foot ulcer (principal); L97.516 Non-pressure chronic ulcer of other part of right foot with bone involvement without evidence of necrosis; M86.171 Other acute osteomyelitis, right ankle and foot | CPT/HCPCS: G0463 ==

== ENCOUNTER 2020-09-13 09:21 | Outpatient (CLI) | payer OTHER, SELFPAY | END 2020-09-13 09:22 | disposition home or self-care (01) | LOC: WOUND 09:22 | PROVIDERS: Visit Provider Thoracic Surgery (Cardiothoracic Vascular Surgery) | DX: E11.622 Type 2 diabetes mellitus with other skin ulcer (principal); L97.812 Non-pressure chronic ulcer of other part of right lower leg with fat layer exposed; Z89.511 Acquired absence of right leg below knee | CPT/HCPCS: 11042 ==

== ENCOUNTER 2020-09-20 09:18 | Outpatient (CLI) | payer OTHER, SELFPAY | END 2020-09-20 09:19 | disposition home or self-care (01) | LOC: WOUND 09:18 | PROVIDERS: Visit Provider Thoracic Surgery (Cardiothoracic Vascular Surgery) | DX: E11.622 Type 2 diabetes mellitus with other skin ulcer (principal); L97.816 Non-pressure chronic ulcer of other part of right lower leg with bone involvement without evidence of necrosis; M86.671 Other chronic osteomyelitis, right ankle and foot; Z89.511 Acquired absence of right leg below knee | CPT/HCPCS: 11042 ==

== ENCOUNTER 2020-10-04 09:17 | Outpatient (CLI) | payer OTHER, SELFPAY | END 2020-10-04 09:18 | disposition home or self-care (01) | LOC: WOUND 09:20 | PROVIDERS: Visit Provider Nurse Practitioner Family | DX: Z89.511 Acquired absence of right leg below knee (principal); Z09 Encounter for follow-up examination after completed treatment for conditions other than malignant neoplasm | CPT/HCPCS: 99212 ==